=== PATIENT | female | born 1945 | race Caucasian/White ===

== ENCOUNTER → 2024-10-26 | Outpatient (CLI) | payer MEDICARE, SELFPAY ==
[2024-10-26 12:12] LABS: Basophils # (Auto) 0.1 Thou/mm3 (0.0-0.2); Basophils % (Auto) 1 % (0-2.5); Eosinophils # (Auto) 0.5 Thou/mm3 (0.0-0.5); Eosinophils % (Auto) 6 % (0-10); Hemoglobin 13.8 g/dL (12.0-16.0); Immature Granulocytes % (Auto) 0 % (0-0); Immature Granulocytes Auto 0.03 Thou/mm3 (0.00-0.00); Lymphocytes # (Auto) 1.6 Thou/mm3 (1.0-4.8); Lymphocytes % (Auto) 19 % (10-50); Mean Corpuscular HGB Conc 32.9 g/dl (31.0-37.0); Mean Corpuscular Hemoglobin 29.7 pg (25.0-35.0); Mean Corpuscular Volume 90 fL (80-100); Monocytes # (Auto) 0.7 Thou/mm3 (0.0-0.8); Monocytes % (Auto) 8 % (0-12); Neutrophils # (Auto) 5.7 Thou/mm3 (1.8-7.7); Neutrophils % (Auto) 67 % (37-80); Nucleated Red Blood Cell % 0 /100 WBC (0); Platelet Count 230 Thou/mm3 (140-440); RDW Standard Deviation 43.6 fL (36.4-46.3); Red Blood Count 4.65 Miln/mm3 (4.00-5.20); White Blood Count 8.6 Thou/mm3 (3.6-11.0)
[2024-10-26 12:35] LABS: Alanine Aminotransferase 11 U/L (10-49); Albumin, Serum 4.3 gm/dL (3.4-4.8); Albumin/Globulin Ratio 2.2 (1.2-2.2); Alkaline Phosphatase 74 U/L (46-116); Anion Gap 8 (7-16); Aspartate Amino Transferase 18 U/L (0-34); BUN/Creatinine Ratio 20 Ratio (12-20); Bilirubin,Total 0.5 mg/dL (0.3-1.2); Blood Urea Nitrogen 20 mg/dL (9-23); Calcium 9.8 mg/dL (8.3-10.6); Calcium (Corrected) 9.8 mg/dL (8.5-10.1); Carbon Dioxide 27.8 mMol/L (20.0-31.0); Chloride 105 mMol/L (98-107); Glucose 93 mg/dL (74-106); Osmolality,Calculated 283 (275-295); Potassium 4.7 mMol/L (3.4-5.1); Sodium 141 mMol/L (136-145); Total Protein 6.3 gm/dL (5.7-8.2); eGFR 57 See Note
== END | disposition home or self-care (01) ==
LOC: COPL 11:24
PROVIDERS: PCP Family Medicine; Referring Provider Family Medicine; Visit Provider Family Medicine
DX: N95.1 Menopausal and female climacteric states (principal); I83.893 Varicose veins of bilateral lower extremities with other complications; G90.09 Other idiopathic peripheral autonomic neuropathy; C83.10 Mantle cell lymphoma, unspecified site
CPT/HCPCS: 36415; 80053; 85025

== ENCOUNTER → 2024-12-22 | Outpatient (CLI) | payer MEDICARE, SELFPAY ==
--- NOTE | 2024-12-22 12:59 | XR_ITS ---
Examination: PA lateral chest 2 views TECHNIQUE: Upright PA lateral chest 2 views Exam date and time: December 22, 2024 1326 hours Comparison November 08, 2021 INDICATIONS: Coughing wheezing beginning 3 months ago. FINDINGS: Normal heart size Lungs are clear. Left subclavian Port-A-Cath tip SVC IMPRESSION: No pneumonia identified
--- NOTE | 2024-12-22 12:59 | XR_ITS ---
Examination: Sinus series 3 views TECHNIQUE: Beatriz Boo lateral sinus series 3 views Exam date and time: December 22, 2024 1330 hours INDICATIONS: Sinus pressure and pain beginning 3 months ago. FINDINGS: Significant chronic frontal ethmoid sinusitis No fluid levels No retention cysts IMPRESSION: Significant chronic frontal ethmoid sinusitis
[2024-12-22 15:25] LABS: Basophils # (Auto) 0.1 Thou/mm3 (0.0-0.2); Basophils % (Auto) 1 % (0-2.5); Eosinophils # (Auto) 0.2 Thou/mm3 (0.0-0.5); Eosinophils % (Auto) 2 % (0-10); Hematocrit 42.7 % (36.0-46.0); Hemoglobin 13.8 g/dL (12.0-16.0); Immature Granulocytes % (Auto) 0 % (0-0); Immature Granulocytes Auto 0.04 Thou/mm3 (0.00-0.00); Lymphocytes # (Auto) 1.3 Thou/mm3 (1.0-4.8); Lymphocytes % (Auto) 12 % (10-50); Mean Corpuscular HGB Conc 32.3 g/dl (31.0-37.0); Mean Corpuscular Hemoglobin 28.9 pg (25.0-35.0); Mean Corpuscular Volume 89 fL (80-100); Monocytes # (Auto) 0.7 Thou/mm3 (0.0-0.8); Monocytes % (Auto) 6 % (0-12); Neutrophils # (Auto) 9.1 Thou/mm3 (1.8-7.7); Neutrophils % (Auto) 79 % (37-80); Nucleated Red Blood Cell % 0 /100 WBC (0); Platelet Count 259 Thou/mm3 (140-440); RDW Standard Deviation 43.5 fL (36.4-46.3); Red Blood Count 4.78 Miln/mm3 (4.00-5.20); White Blood Count 11.5 Thou/mm3 (3.6-11.0)
[2024-12-23 12:28] LABS: Cocci Serology, IgM Negative (Negative)
[2024-12-24 16:05] LABS: Cocci Serology, IgG Negative (Negative)
== END | disposition home or self-care (01) ==
LOC: CDIM 12:56 → COPL 13:35
PROVIDERS: PCP Nurse Practitioner Family; Referring Provider Nurse Practitioner Family; Visit Provider Radiology Diagnostic Radiology
DX: R05.9 Cough, unspecified (principal); J32.2 Chronic ethmoidal sinusitis
CPT/HCPCS: 36415; 70220; 71046; 85025; 86331; 86635

== ENCOUNTER 2024-12-26 10:36 | Inpatient (IN) | payer MEDICARE, SELFPAY ==
--- NOTE | 2024-12-26 | XR_ITS ---
Examination: MRI lumbar spine, without intravenous contrast. MRI lumbar spine , with intravenous contrast. Exam date and time: December 26, 2024 7001 hours INDICATIONS: Chronic back pain and spasms, CT lumbar spine exam today cortical bone destruction inferior margin L 2 Technique: Multiple axial, sagittal and coronal images of the lumbar spine have been obtained with the Siemens high-resolution 1.5 Raegan MRI scanner. Images obtained included T2 weighted fat suppressed sagittal sections, TR 3500, TE 46, T2 weighted coronal fat suppressed images, TR 3050, TE 84, T2-weighted transverse fat suppressed images, TR 30-60, TE 63, proton density transverse images, TR 4720, TE 46, and T1 weighted coronal images, TR 560, TE 13. Axial, sagittal and coronal images are obtained post intravenous injection 14 cc gadolinium. Findings: Cortical irregularity inferior margin of L2 but no increased signal on the precontrast images and no abnormal enhancement involving the inferior margin of L2 on the postcontrast images There is abnormal contrast enhancement involving the upper margin of the L4 posterior inferior margin L3 and posterior superior margin of L2 as well as the inferior margin of L1 No intervening disc enhancement. IMPRESSION: Negative for osteomyelitis involving L2 Foci of enhancement in the lumbar vertebral bodies as above, differential would include involvement with the patient's known lymphoma versus other osseous metastatic disease. Recommend whole body bone scan follow-up No epidural tumor impingement upon the conus medullaris or cauda equina
[2024-12-26 10:41] VITALS: PULSE 80; RESP 18; O2SAT 98; BMI 26.6
--- NOTE | 2024-12-26 10:57 | PD.EDBACK ---
ED Back Injury Pain RME/HPI General Chief Complaint: Back Pain/Injury Stated Complaint: BACK PAIN Time Seen by Provider: 12/26/24 10:56 Arrival date/time: 12/26/24 10:36 RME / HPI RME / HPI Narrative: DR. SAN MAIN ED EVALUATION: 79 year old female presents to the Emergency Department [facility] from home with complaint of back pain. Patient has chronic back pain but since yesterday afternoon she states it is worse and has more spasms . Patient states that she took tramadol 50 mg with little to no relief at home. She denies any injury or fall; she just states that she was just doing vigorous household work. Patient denies any of the following: fall, injury, loss of consciousness, or any other symptoms at this time. PMHx: Chronic back pain, bronchitis, and peripheral neuropathy. 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 Social Hx: No tobacco, alcohol, or substance use. Related Data Home Medications ?Medication ?Instructions ?Recorded ?Confirmed Cetirizine * (ZYRTEC *) 10 mg PO QDAY #0 tabs 07/26/16 GLUC 2KCL/CHONDR/GERALD HY/HY AC ##0 07/26/16 (GLUCOSAMINE & CHONDROITIN CAP) Multivitamins * (CENTRUM *) 1 tab PO QDAY #0 tabs 07/26/16 Ubidecarenone/Vit E Acetate (Co 200 ##0 07/26/16 Q-10 100 mg Softgel) Vitamin B Complex ##0 07/26/16 alpha lipoic acid 200 mg capsule 100 ##0 07/26/16 biotin 800 mcg tablet 5,000 mcg PO QDAY #0 tabs 07/26/16 estradiol 0.025 mg/24 hr weekly 0.025 mg TOP Q7D #0 ea 07/26/16 transdermal patch (Climara) psyllium husk 0.52 gram capsule 0.52 gm PO BID ##0 07/26/16 (Metamucil) ropinirole 0.5 mg tablet (Requip) 0.5 mg PO HS #0 tabs 07/26/16 tramadol 50 mg tablet (Ultram) 50 mg PO HS PRN PAIN #0 tabs 07/26/16 Previous Rx's ?Medication ?Instructions ?Recorded ibuprofen 800 mg tablet 800 mg PO TID PRN pain #30 tabs 11/08/21 Allergies Allergy/AdvReac Type Severity Reaction Status Date / Time grass pollen Allergy Verified 12/26/24 10:49 Review of Systems Review of Systems Systems Reviewed: All systems reviewed, normal except as documented Narrative Review of Systems: Constitutional: DENIES: fevers; Eyes: DENIES: loss of vision; Head/Ear/Nose: DENIES: loss of hearing. Throat: DENIES: dysphagia. Cardiovascular: DENIES: chest pain, dyspnea, or syncope. Respiratory: DENIES: shortness of breath; Gastrointestinal: DENIES: rectal bleeding or melena. Genitourinary: DENIES: dysuria (painful or difficult urination); Musculoskeletal: POSITIVES: chronic back pain (see HPI) Skin: DENIES: rash; Neurological: DENIES: loss of function or movement; Psychiatric: DENIES: recent major life stressor, emotional problem, illicit drug use or abuse; Endocrinology: DENIES: weight change,; Hematologic/Lymphatic: DENIES: abnormal bruising. Allergic/Immunologic: DENIES: urticaria (hives). Past Medical History Past Medical History CARDIAC: Negative Congestive Heart Failure RESPIRATORY: Negative Chronic Obstructive Pulmonary Disease (COPD) GENITOURINARY: Negative Renal Disease ENDOCRINE: Negative Diabetes Mellitus Type 1 or Diabetes Mellitus Type 2 OTHER HISTORY: Positive Blood Transfusions Social History SMOKING STATUS: Never smoker SUBSTANCE USE: does not use ALCOHOL: Never ED Exam Narrative Physical exam: Physical Exam: General: The vital signs were reviewed. The patient is non-toxic, in no apparent distress and appears healthy with a patent airway, no respiratory distress and has no apparent circulatory problems. Head & Scalp: Normocephalic, atraumatic. Face: Appears normal and is without lesions, deformity. Ears: Left external pinna appears normal. Right external pinna appears normal. Eyes: The sclera is anicteric. No obvious photophobia. The Left and Right Orbit/Lid/Conjunctiva appears normal without swelling, discoloration or injection. Nose: The nose is without deformity, discharge or tenderness; Throat: Appears normal. The mucous membranes are pink and moist without exudates, redness or mass seen. The tongue appears normal. Neck: The neck is supple and no apparent mass or adenopathy. Chest: The chest wall is normal in size and symmetry and has no chest wall tenderness or crepitus. The patient displays normal ventilator effort without retractions, accessory muscle use and has adequate air movement bilaterally with no wheezes and no rales. Cardiovascular: Regular rate and rhythm; No murmurs, rubs, or gallops; Gastrointestinal: The abdomen appears normal. No obvious hernias or mass. The abdomen is soft and benign, non-distended, with no pain, no guarding and no rebound tenderness. Bowel sounds are present and normal sounding. No CVA tenderness. Genitourinary: Back/Spine: Complains of lumbar pain. Extremities/Musculoskeletal/lymphatic: The bilateral upper and lower extremities are warm. There is no evidence of arterial insufficiency. There is no evidence of venous insufficiency/edema. The patient spontaneously moves bilateral upper and lower extremities with no pain and no limitation of movement. There is no apparent, injury or trauma. Skin: The skin is warm, dry and intact. No rashes. No petechia. No purpura. No abnormal bruising. The color is appropriate with no cyanosis. Mental status/Psychiatric: Mental status is appropriate for age. The patient has no apparent delusions, visual hallucinations, no apparent audible hallucinations. The patient has no apparent suicidal thoughts/ideation and no apparent homicidal thoughts/ideation. Neurological: The patient is awake, alert, interactive, cordial, cooperative and is oriented to name and situation. The patient follows commands and answers historical question with no impairment. There is no visual disturbance apparent. The pupils are equal and reactive bilaterally with normal eye movements and no diplopia The bilateral upper and lower extremities have normal strength, normal range of motion and normal functioning. The gait, station and balance appear to be baseline with no acute change Course Quality Measures none Orders Category Date Time Status MRI Screening NOW Care 12/26/24 15:[address] lumbar spine wo con Stat Exams 12/26/24 10:56 Completed MR lumbar spine wo/w con Stat Exams 12/26/24 Ordered XR chest 1V portable Stat Exams 12/26/24 10:58 Completed CBC Stat Lab 12/26/24 11:20 Completed Comprehensive Metabolic Panel Stat Lab 12/26/24 11:20 Completed PT [Prothrombin Time with INR] Stat Lab 12/26/24 11:20 Completed PTT [Partial Thromboplastin Time] Stat Lab 12/26/24 11:20 Completed Urinalysis Stat Lab 12/26/24 11:45 Completed Morphine Inj Med 12/26/24 16:14 Discontinued 2 mg IVP X1 ONE Ondansetron Inj [Zofran Inj] Med 12/26/24 16:15 Discontinued 4 mg IV X1 ONE Sodium Chloride 0.9% 1000 ml [Ns] 1,000 ml Med 12/26/24 10:56 Active IV 150 mls/hr Vital Signs Vital signs: Vital Signs Temperature 98.3 F 12/26/24 13:53 Pulse Rate 74 12/26/24 13:53 Respiratory Rate 19 12/26/24 13:53 Blood Pressure 159/82 H 12/26/24 13:53 Pulse Oximetry (%) 96 12/26/24 13:53 Oxygen Delivery Method Room Air 12/26/24 13:53 Back Pain / Injury MDM Narrative MDM Narrative:: Patient is 79-year-old who comes in with back pain for 2 days it got worse this morning tramadol was not helping. She states she was doing her yard work or housework a little more aggressively than usual. She also has a history of laminectomy 1977 has had intermittent back pain throughout the years but this is the worst it has been. She also has history of lymphoma years ago that is in remission. There is no fever vomiting or diarrhea. Medical workup included the following white count 10.1 hemoglobin 13.1 platelet count 235,000 PT 10.5 INR is 1 PTT 25.9 sodium 139 potassium 3.8 chloride 21 anion gap is 10 BUN 12 creatinine 0.9 glucose 100 catheter urine specimen came back negative. Chest x-ray was done which reveals no infiltrates no effusion normal heart. Lumbar CT was done to rule out compression fracture and rule out pathologic fracture but fortunately there is no evidence of that. Patient does have the following: Prominent osteopenia cortical erosions inferior endplate L2, sagittal image with impression that we need to consider or rule out osteomyelitis. Note patient has no fever no chills and the findings are borderline but nonetheless MRI with and without contrast was suggested by radiology and this is pending as of 1700 hrs. The care of this patient be signed out to the oncoming doctor at 1800 hrs. to follow-up on the MRI. She also got pain medicine she appears to be comfortable when she is not moving. This will need to be reassessed at the time of reevaluation on the following DrNorma Transfer of care at 1800 hrs. see if the patient can ambulate with safety and if the MRI report shows no evidence of osteomyelitis. Virginia Rosen, am scribing for and in the presence of Dr. San. Patient data External records reviewed:: EMS form Clinical information provided by:: patient and EMS Social determinants that could affect healthcare access:: none Patient has the following chronic illnesses:: Chronic back pain, bronchitis, and peripheral neuropathy. 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 How is presenting disease/condition affected by chronic disease/condition?: exacerbated by Evaluation data The following diagnostics were reviewed and interpreted by me:: lab results and radiology exam(s) Lab and/or radiology exams considered but not ordered:: none Interpretation Summary: See above under MDM narrative. RADIOLOGY Procedure(s): XR chest 1V portable Accession Number(s): [id number] cc: Bashir San MD; Rio Kraus MD~ Examination: AP chest single view Technique one AP portable upright chest single view Exam date and time: 12/26/2024t 1008 hours Comparison December 22, 2024 INDICATIONS: Dyspnea today. FINDINGS: Left subclavian Port-A-Cath tip SVC Normal heart size Lungs are clear IMPRESSION: No active disease Dictated By: Rio Kraus MD Procedure(s): CT lumbar spine wo [facility] Accession Number(s): [id number] cc: Bashir San MD; Rio Kraus MD; Andreas Pettit MD~ Examination: CT lumbar spine, without contrast. 2-D sagittal reconstructions. 2-D coronal reconstructions. 3-D reconstructions. Date and time of exam:December 26, 2024 1158 hours INDICATIONS: Diagnosis lymphoma, increasing back pain today CTDI: vol (mGy):52.8 DLP: (mGycm):618 Technique: Multiple 1.25 mm axial sections of the lumbar spine without intravenous contrast have been obtained. 2-D sagittal and coronal reconstructions have been obtained. 3-D reconstructions have been obtained. Low dose protocols were performed. One or more of the following dose reduction techniques were used; automated exposure control, adjustment of the mA and/or KV according to patient size, use of iterative reconstruction technique. Findings: Prominent osteopenia cortical erosions inferior endplate L2, sagittal image 52 Advanced disc narrowing at the lower 3 lumbar levels Axial images demonstrate 3 mm central disc bulge L3-L4 1 mm posterior left renal calculi IMPRESSION: Cortical erosions inferior endplate L2, consider osteomyelitis Recommend MRI lumbar spine follow-up pre and post intravenous contrast Dictated By: Rio Kraus MD Medications / Prescriptions Medications or Prescriptions considered but not ordered:: none Medication administrations:: Medication Administration History Sodium Chloride (Ns) 1,000 mls @ 150 mls/hr IV .[id number] ONE Stop: 12/26/24 17:35 Last Admin: 12/26/24 11:29 Dose: 150 mls/hr Documented By: Discontinued Medications Morphine Sulfate (Morphine Sulf Inj 10 Mg/Ml Vial) 2 mg IVP X1 ONE Stop: 12/26/24 16:15 Last Admin: 03/24/25 16:44 Dose: 2 mg Documented By: LIOR Ondansetron HCl (Ondansetron Inj 2 Mg/Ml Inj 2 Ml) 4 mg IV X1 ONE; Protocol Stop: 12/26/24 16:16 Last Admin: 12/26/24 16:44 Dose: 4 mg Documented By: LIOR see above Consultations Consultation(s) initiated? (list below): No Diagnosis Differential diagnosis back pain/injury: lumbar radiculopathy, sciatica, strain of lumbar region, pyelonephritis, thoracic back pain and discitis Most likely diagnosis given after review of the tests above:: No official diagnoses at this time, still pending diagnostic tests. Patient signout to the cloth shrinking machine operator helper provider. Admission Indicated Admission indicated?: not indicated Explain why admission is indicated or not indicated:: No final disposition plan at this time, still pending diagnostic tests. Patient signout to the cloth shrinking machine operator helper provider. Admission Request Was there a request for admission?: No Disposition Plan Disposition Plan: other (specify) (Patient signout to the cloth shrinking machine operator helper provider.) Discharge Plan Prescriptions/Referrals Prescriptions/Med Rec: No Action biotin 800 MCG tablet 5,000 mcg PO QDAY Qty: 0 tramadol [Ultram] 50 MG tablet 50 mg PO HS PRN (Reason: PAIN) Qty: 0 Patient Comments: FOR PAIN, NOT TO EXCEED 8 TABS IN 24 HRS ropinirole [Requip] 0.5 MG tablet 0.5 mg PO HS Qty: 0 alpha lipoic acid 200 MG capsule 100 Qty: 0 Cetirizine * (ZYRTEC *) 10 MG tablet 10 mg PO QDAY Qty: 0 Multivitamins * (CENTRUM *) 1 EACH tablet 1 tab PO QDAY Qty: 0 Ubidecarenone/Vit E Acetate (Co Q-10 100 mg Softgel) 1 EACH capsule 200 Qty: 0 psyllium husk [Metamucil] 0.52 G capsule 0.52 gm PO BID Qty: 0 GLUC 2KCL/CHONDR/GERALD HY/HY AC (GLUCOSAMINE & CHONDROITIN CAP) 1 EACH capsule Qty: 0 Vitamin B Complex 1 CAP capsule Qty: 0 estradiol [Climara] 1 PATCH.WK patch weekly 0.025 mg TOP Q7D Qty: 0 ibuprofen 800 mg tablet 800 mg PO TID PRN (Reason: pain) Qty: 30 0RF Referrals: Andreas Pettit MD [Primary Care Provider] - In 1 week Problem List Clinical Impression: Intractable low back pain, Abnormal CT scan, lumbar spine Patient/Caregiver Discharge Instructions Print Language: Hong Konger
[2024-12-26] MEDS: SODIUM CHLORIDE 0.9% 1000 ML 1,000 ML 150 ML IV (11:29)
[2024-12-26 11:42] LABS: Basophils # (Auto) 0.1 Thou/mm3 (0.0-0.2); Basophils % (Auto) 1 % (0-2.5); Eosinophils # (Auto) 0.4 Thou/mm3 (0.0-0.5); Eosinophils % (Auto) 4 % (0-10); Hematocrit 38.9 % (36.0-46.0); Hemoglobin 13.1 g/dL (12.0-16.0); Immature Granulocytes % (Auto) 0 % (0-0); Immature Granulocytes Auto 0.03 Thou/mm3 (0.00-0.00); Lymphocytes # (Auto) 1.7 Thou/mm3 (1.0-4.8); Lymphocytes % (Auto) 17 % (10-50); Mean Corpuscular HGB Conc 33.7 g/dl (31.0-37.0); Mean Corpuscular Hemoglobin 29.5 pg (25.0-35.0); Mean Corpuscular Volume 88 fL (80-100); Monocytes # (Auto) 0.7 Thou/mm3 (0.0-0.8); Monocytes % (Auto) 6 % (0-12); Neutrophils # (Auto) 7.3 Thou/mm3 (1.8-7.7); Neutrophils % (Auto) 72 % (37-80); Nucleated Red Blood Cell % 0 /100 WBC (0); Platelet Count 235 Thou/mm3 (140-440); RDW Standard Deviation 42.4 fL (36.4-46.3); Red Blood Count 4.44 Miln/mm3 (4.00-5.20); White Blood Count 10.1 Thou/mm3 (3.6-11.0)
[2024-12-26 11:54] LABS: Partial Thromboplastin Time 25.9 Seconds (22.0-36.0); Prothrombin Time 10.5 Seconds (9.0-12.2)
[2024-12-26 12:06] LABS: Collection Type, Urine Catheter
[2024-12-26 12:08] LABS: Alanine Aminotransferase < 7 U/L (10-49); Albumin, Serum 3.9 gm/dL (3.4-4.8); Albumin/Globulin Ratio 1.9 (1.2-2.2); Alkaline Phosphatase 65 U/L (46-116); Anion Gap 10 (7-16); Aspartate Amino Transferase 14 U/L (0-34); BUN/Creatinine Ratio 13 Ratio (12-20); Bilirubin,Total 0.6 mg/dL (0.3-1.2); Blood Urea Nitrogen 12 mg/dL (9-23); Calcium 8.8 mg/dL (8.3-10.6); Calcium (Corrected) 8.9 mg/dL (8.5-10.1); Carbon Dioxide 20.4 mMol/L (20.0-31.0); Chloride 109 mMol/L (98-107); Creatinine (Component) 0.9 mg/dL (0.6-1.3); Estimated Creatinine Clearance 48.8 mL/min (>60); Globulin 2.1 gm/dL (2.3-3.5); Glucose 100 mg/dL (74-106); Osmolality,Calculated 277 (275-295); Potassium 3.8 mMol/L (3.4-5.1); Sodium 139 mMol/L (136-145); eGFR > 60 See Note
[2024-12-26 12:43] LABS: Bacteria,Urine Rare; Bilirubin,Urine Negative (Negative); Blood,Urine Negative (Negative); Clarity,Urine Clear (Clear/Hazy); Color,Urine Lt-Yellow (Lt Yel-Yel); Glucose, Urine Negative (Negative); Ketones,Urine Negative (Negative); Leukocyte Esterase,Urine Negative (Negative); Nitrite,Urine Negative (Negative); Protein,Urine Negative (Neg - Trace); RBC,Urine 1 /hpf (0-3); Specific Gravity,Urine 1.016 (1.001-1.035); Squamous Epithelial Cell,Urine 3 /hpf (0-5); Urobilinogen,Urine Negative mg/dL (0.0-1.0); WBC,Urine < 1 /hpf (0-5)
[2024-12-26 13:53] VITALS: BP 159/82; PULSE 74; RESP 19; TEMP 36.8; O2SAT 96
[2024-12-26 15:58] VITALS: BP 159/82; PULSE 72; RESP 17
[2024-12-26] MEDS: ONDANSETRON INJ 2 MG/ML INJ 2 ML 4 MG IV (16:44)
[2024-12-26] MEDS: MORPHINE SULF INJ 10 MG/ML VIAL 2 MG IVP (16:44)
[2024-12-26 20:12] VITALS: BP 148/71; PULSE 68; RESP 20; TEMP 37.1; O2SAT 96
--- NOTE | 2024-12-26 20:24 | PD.EDADDENDU ---
Emergency Room Addendum Addendum Narrative: I took over the care from previous shift physician (Dr. San) at 6 PM on 12/22/2024, see his notes for complete H&P and ED course. I reviewed all diagnostic test results. 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 Can't stand or walk or function. Based on my best medical judgment, made decision no further evaluation or treatment indicated at this time. Patient understands and agrees to the discharge instructions customized and printed, see below. Brendan Rangel MD
[2024-12-26] MEDS: SODIUM CHLORIDE 0.9% 1000 ML 1,000 ML 75 ML IV (20:55)
--- NOTE | 2024-12-26 21:16 | PD.RESHP ---
Documentation for date of: 12/26/24 HPI History of Present Illness History of present illness: Nancy is a 79 y/o female with PMHx mantle cell lymphoma, (in remission since 2008, status post stem cell transplant), infertility, chronic lower back pain who comes for an evaluation of lower back pain onset 2 days ago, improved with some tramadol. Patient reports that she has had chronic lower back pain for years now and she had gotten a laminectomy before. She also says that she takes tramadol for peripheral neuropathy and to help her back pain every night. She also says that she is able to walk on her own, however since the back pain had started she has not been able to walk. She said her pain is a 10/10 when she tries to walk. She denies any worsening numbness or tingling from her baseline, she has peripheral neuropathy due to history of chemotherapy in the past. She denies having a recent fall. She denies any urinary symptoms such as incontinence. She says her pain is so bad it that is been affecting her gait and has been walking gingerly. She denies any chest pain, shortness of breath, confusion, headache. At this time she does endorse that her 6 months ago and that she has been the bag alone in her house in [place]. She says that she lives alone currently but she has a lot of friends. No other complaints at this time ED Course: Patient arrived to the ED with temperature of 98.3, heart rate of 74, respiratory of 19, blood pressure 159/82, saturating 96% on room air. She was worked up was found to have a sodium of 139, potassium 3.8, bicarb 28, BUN/creatinine of twelve and 0.9 respectively, sugar of 100, white count 10.1, hemoglobin 13.1, calcium 8.9, AST ALT 19 and 7 respectively, urinalysis unremarkable. CT lumbar showed cortical erosions in the L2 spine, concerning for osteomyelitis. Lumbar MRI was done which showed enhancement lumbar bodies no osteomyelitis. Patient was given normal saline 150 cc/ hour, morphine x 1, Zofran x 1. Medicine was consulted patient was made to floors PMHx: As above Surgeries: Cervical fusion, hysterectomy, stem cell transplant (2008), laminectomy, carpal tunnel surgery, cataract repair Meds: Tramadol, Flonase, Zyrtec, assortment of vitamins, estradiol Allergies: Grass pollen Family Hx: Dad in the 90s of colon cancer, mother of old age. She says that her family has health genetics Social Hx: Born in [facility] raised in [place] moved to [place] in 1983. 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 A majority of her family lives in [place]. Has never been a heavy drinker, no smoking history, no drug use history. No recent travel. Able to walk on her own. Has recently been nursing a rotator cuff injury with physical therapy. Cooks a meal about once a week, and has a gourmet head chef cook 5 meals a month for her which she can make multiple meals out of. Review of Systems Review of Systems Narrative Review of Systems: Constitutional: No fever, chills, fatigue, weakness, weight loss HEENT: No eye pain, vision loss, ear pain, hearing loss, dysphagia, Cardiovascular: No chest pain, palpitations, edema, Respiratory: No cough, shortness of breath, wheezing GI: No NVD, abdominal pain, constipation, blood in stool, loss of appetite, heartburn Extremities: No presence of pitting edema MSK: Positive back pain, no joint pain, joint swelling, positive pain with walking, positive impaired gait Neuro: No dizziness, numbness, weakness, headaches, seizures, tremors Psych: No anxiety, depression Exam Vital Signs Temp Pulse Resp BP Pulse Ox O2 Del Method 98.7 F 68 20 148/71 H 96 Room Air 12/26/24 20:12 12/26/24 20:12 12/26/24 20:12 12/26/24 20:12 12/26/24 20:12 12/26/24 20:12 Narrative Exam General: AAOx3, NAD, pleasant elderly female. HEENT: Moist mucous membranes, conjunctiva clear, EOMI, PERRLA. Cardiovascular: possible ejection murmur heard in GILDA, radial pulses +2 bilat, RRR. Pulmonary: CTAB bilat no cough, no wheezing. GI: No tenderness to light or deep palpitation, no guarding, rigidity, rebound tenderness or distension. Extremities: No presence of trace or pitting edema in lower extremities bilaterally, dorsalis pedis pulses +2 bilaterally, shins slightly TTP bilat. Neuro: AAOx3, no focal motor or sensory deficits in the UE or LE bilat, however slight peripheral neuropathy in feet bilat . Psych: Good judgement, thought and behavior. Cooperative. Results: Labs 12/26/24 11:20 12/26/24 11:20 Labs: Short CBC 12/26/24 Range/Units 11:20 WBC 10.1 (3.6-11.0) Thou/mm3 Hgb 13.1 (12.0-16.0) g/dL Hct 38.9 (36.0-46.0) % Plt Count 235 (140-440) Thou/mm3 BMP 12/26/24 11:20 Sodium 139 Potassium 3.8 Chloride 109 H Carbon Dioxide 20.4 BUN 12 Creatinine 0.9 Glucose 100 Calcium 8.8 Liver Function 12/26/24 Range/Units 11:20 Total Bilirubin 0.6 (0.3-1.2) mg/dL AST 14 (0-34) U/L ALT < 7 L (10-49) U/L Alkaline Phosphatase 65 (46-116) U/L Albumin 3.9 (3.4-4.8) gm/dL Urine 12/26/24 Range/Units 11:45 Urine Color Lt-Yellow (Lt Yel-Yel) Urine Clarity Clear (Clear/Hazy) Urine pH 8.0 H (5.0-7.0) Ur Specific [place] 1.016 (1.001-1.035) Urine Protein Negative (Neg - Trace) Urine Glucose (UA) Negative (Negative) Quality Measures Quality Measures none Advance care planning discussed with:: patient Medications Home Medications and Allergies Home Medications ?Medication ?Instructions ?Recorded ?Confirmed ?Type Cetirizine * (ZYRTEC *) 10 mg PO QDAY #0 tabs 07/26/16 History GLUC 2KCL/CHONDR/GERALD HY/HY AC ##0 07/26/16 History (GLUCOSAMINE & CHONDROITIN CAP) Multivitamins * (CENTRUM *) 1 tab PO QDAY #0 tabs 07/26/16 History Ubidecarenone/Vit E Acetate (Co 200 ##0 07/26/16 History Q-10 100 mg Softgel) Vitamin B Complex ##0 07/26/16 History alpha lipoic acid 200 mg capsule 100 ##0 07/26/16 History biotin 800 mcg tablet 5,000 mcg PO QDAY #0 tabs 07/26/16 History estradiol 0.025 mg/24 hr weekly 0.025 mg TOP Q7D #0 ea 07/26/16 History transdermal patch (Climara) psyllium husk 0.52 gram capsule 0.52 gm PO BID ##0 07/26/16 History (Metamucil) ropinirole 0.5 mg tablet (Requip) 0.5 mg PO HS #0 tabs 07/26/16 History tramadol 50 mg tablet (Ultram) 50 mg PO HS PRN PAIN #0 tabs 07/26/16 History Allergies Allergy/AdvReac Type Severity Reaction Status Date / Time grass pollen Allergy Verified 12/26/24 10:49 Visit Medications Hydrocodone Bitart/Acetaminophen (Hydrocodone/Apap 5/325 Tablet) 1 tab PO Q4HR PRN PRN Reason: PAIN SCALE 4-6 (Moderate Stop: 12/31/24 20:32 Enoxaparin Sodium (Enoxaparin Sod Inj 40 Mg/0.4 Ml Syringe) 40 mg SC QDAY LIEN Stop: 01/10/25 08:59 Sodium Chloride (Ns) 1,000 mls @ 75 mls/hr IV .[id number] LIEN Stop: 01/25/25 20:44 Last Admin: 12/26/24 20:55 Dose: 75 mls/hr Morphine Sulfate (Morphine Sulf Inj 10 Mg/Ml Vial) 2 mg IVP Q2H PRN PRN Reason: PAIN SCALE 7-10 (Severe Stop: 12/31/24 20:32 Discontinued Medications Sodium Chloride (Ns) 1,000 mls @ 150 mls/hr IV .[id number] ONE Stop: 12/26/24 17:35 Last Admin: 12/26/24 11:29 Dose: 150 mls/hr Morphine Sulfate (Morphine Sulf Inj 10 Mg/Ml Vial) 2 mg IVP X1 ONE Stop: 12/26/24 16:15 Last Admin: 12/26/24 16:44 Dose: 2 mg Morphine Sulfate (Morphine Sulf Inj 10 Mg/Ml Vial) 2 mg IVP X1 ONE Stop: 12/26/24 19:04 Ondansetron HCl (Ondansetron Inj 2 Mg/Ml Inj 2 Ml) 4 mg IV X1 ONE; Protocol Stop: 12/26/24 16:16 Last Admin: 12/26/24 16:44 Dose: 4 mg Assessment & Plan Plan Assessment Nancy is a 79 y/o female with PMHx mantle cell lymphoma, (in remission since 2008, status post stem cell transplant), infertility, chronic lower back pain who is admitted for severe back pain. #Debilitating back pain DDx: Herination of disc, chronic lower back pain, spinal stenosis, osteomyelitis, cancer Patient does have history of lymphoma has been in remission since 2010 Patient also has history of a laminectomy Lumbar MRI pre and postcontrast does not show any herniation of disks but recommends follow-up body scan as there was enhancement of lumbar bodies Patient may also have fall risk as she is having heart trouble time walking and her baseline and she is able to walk on her own normally Patient does not have any symptoms of urinary incontinence Patient recently had and lives alone currently in her house in [place], may benefit from social worker health services referral Plan: ? Bedrest ? Pain control with Tylenol and [place] ? Consider neurology consult ? Physical therapy referral ? administrative services coordinator referral #Hx of mantle cell lymphoma, in remission, s/p stem cell transplant 2008 Stable at this time #Hx of chronic allergies Plan: ?Resumed home Flonase and Claritin #Health Maintenance Disposition: MedSurg DVT prophylaxis: Lovenox GI prophylaxis: None indicated at this time Diet: Regular CODE STATUS:DNR Patient seen and care discussed with my attending physician, Dr. Damon Lopez, PGY-1 Attending Provider Attestation/Addendum Pt was evaluated and plan formulated together with the housestaff team. I have reviewed the residents note above and agree with most of its content. Please refer to the residents note for additional details. Severe back pain, unable to ambulate. Will need physical therapy evaluation in the morning. MRI is negative for osteomyelitis involving L2. There are foci of enhancement in the lumbar vertebral bodies; differential includes involvement from the patient's known lymphoma versus other osseous metastatic disease. Recommend outpatient whole-body bone scan for follow-up.
[2024-12-26 23:56] VITALS: BP 136/67; PULSE 68; RESP 16; TEMP 36.9; O2SAT 95
--- NOTE | 2024-12-27 00:30 | PC.NURSE ---
Report given to MARICARMEN Dowd Med-surg
[2024-12-27 00:57] VITALS: BMI 26.6
[2024-12-27 04:00] VITALS: BP 146/63; PULSE 66; RESP 19; TEMP 36.3; O2SAT 95
[2024-12-27] MEDS: MORPHINE SULF INJ 10 MG/ML VIAL 2 MG IVP (05:35)
[2024-12-27 06:00] LABS: Basophils # (Auto) 0.1 Thou/mm3 (0.0-0.2); Basophils % (Auto) 1 % (0-2.5); Eosinophils # (Auto) 0.7 Thou/mm3 (0.0-0.5); Eosinophils % (Auto) 9 % (0-10); Hematocrit 38.7 % (36.0-46.0); Hemoglobin 12.7 g/dL (12.0-16.0); Immature Granulocytes % (Auto) 0 % (0-0); Immature Granulocytes Auto 0.02 Thou/mm3 (0.00-0.00); Lymphocytes # (Auto) 1.7 Thou/mm3 (1.0-4.8); Lymphocytes % (Auto) 20 % (10-50); Mean Corpuscular HGB Conc 32.8 g/dl (31.0-37.0); Mean Corpuscular Hemoglobin 29.6 pg (25.0-35.0); Mean Corpuscular Volume 90 fL (80-100); Monocytes # (Auto) 0.8 Thou/mm3 (0.0-0.8); Monocytes % (Auto) 10 % (0-12); Neutrophils # (Auto) 4.9 Thou/mm3 (1.8-7.7); Neutrophils % (Auto) 60 % (37-80); Nucleated Red Blood Cell % 0 /100 WBC (0); Platelet Count 208 Thou/mm3 (140-440); RDW Standard Deviation 43.8 fL (36.4-46.3); Red Blood Count 4.29 Miln/mm3 (4.00-5.20); White Blood Count 8.2 Thou/mm3 (3.6-11.0)
[2024-12-27 06:32] LABS: Alanine Aminotransferase < 7 U/L (10-49); Albumin, Serum 3.6 gm/dL (3.4-4.8); Albumin/Globulin Ratio 1.9 (1.2-2.2); Alkaline Phosphatase 58 U/L (46-116); Anion Gap 8 (7-16); Aspartate Amino Transferase 14 U/L (0-34); BUN/Creatinine Ratio 11 Ratio (12-20); Bilirubin,Total 0.5 mg/dL (0.3-1.2); Blood Urea Nitrogen 10 mg/dL (9-23); Calcium 8.8 mg/dL (8.3-10.6); Calcium (Corrected) 9.1 mg/dL (8.5-10.1); Carbon Dioxide 21.9 mMol/L (20.0-31.0); Chloride 113 mMol/L (98-107); Creatinine (Component) 0.9 mg/dL (0.6-1.3); Estimated Creatinine Clearance 48.8 mL/min (>60); Globulin 1.9 gm/dL (2.3-3.5); Glucose 92 mg/dL (74-106); Osmolality,Calculated 283 (275-295); Potassium 4.1 mMol/L (3.4-5.1); Sodium 143 mMol/L (136-145); Total Protein 5.5 gm/dL (5.7-8.2); eGFR > 60 See Note
[2024-12-27 08:00] VITALS: BP 149/81; PULSE 82; RESP 17; TEMP 36.6; O2SAT 98
[2024-12-27] MEDS: ENOXAPARIN SOD INJ 40 MG/0.4 ML SYRINGE SC (08:35)
--- NOTE | 2024-12-27 09:37 | ECHO_ITS ---
Transthoracic Echo Report Ht (in): 64 Wt (lb): 155 Exam Location: Portable Status: Inpatient [facility]el[facility] Department Supervisor: THOMAS Villanueva^^^^ Indications: Procedure Performed: BP: 118 / 67 HR: 66 Technical Quality: Fair MEASUREMENTS (Male / Female) Normal Values 2D ECHO LV Diastolic Diameter PLAX 4.0 cm 4.2 - 5.9 / 3.9 - 5.3 cm LV Systolic Diameter PLAX 2.6 cm IVS Diastolic Thickness 0.8 cm 0.6 - 1.0 / 0.6 - 0.9 cm LVPW Diastolic Thickness 0.7 cm 0.6 - 1.0 / 0.6 - 0.9 cm LV Relative Wall Thickness 0.4 LVOT Diameter 1.5 cm Aortic Root Diameter 2.5 cm LA Systolic Diameter LX 3.1 cm 3.0 - 4.0 / 2.7 - 3.8 cm Ascending Aorta Diameter 2.5 cm DOPPLER AV Peak Velocity 143.0 cm/s AV Peak Gradient 8.2 mmHg AV Mean Gradient 5.0 mmHg AV Velocity Time Integral 33.5 cm LVOT Peak Velocity 88.7 cm/s LVOT Peak Gradient 3.1 mmHg LVOT Velocity Time Integral 20.4 cm LVOT Cardiac Index 1323.5 cm?/min?m? AV Area Cont Eq vti 1.1 cm? AV Area Cont Eq pk 1.1 cm? MV Peak Velocity 119.0 cm/s MV Peak Gradient 5.7 mmHg MV Mean Velocity 81.7 cm/s MV Mean Gradient 3.0 mmHg MV Area PHT 2.7 cm? MR Peak Velocity 534.0 cm/s MR Peak Gradient 114.1 mmHg Mitral E Point Velocity 99.8 cm/s Mitral A Point Velocity 94.2 cm/s Mitral E to A Ratio 1.1 LV E' Lateral Velocity 5.1 cm/s Mitral E to LV E' Lateral Ratio 19.5 LV E' Septal Velocity 6.6 cm/s Mitral E to LV E' Septal Ratio 15.2 TR Peak Velocity 318.0 cm/s TR Peak Gradient 40.4 mmHg PV Peak Velocity 99.0 cm/s PV Peak Gradient 3.9 mmHg RVOT Peak Velocity 49.5 cm/s FINDINGS Left Ventricle Normal left ventricular size, wall thickness, systolic function with no obvious regional wall motion abnormalities. There is grade II diastolic dysfunction of the left ventricle (pseudonormal filling pattern). The left ventricular ejection fraction is normal, estimated at 55-60%. Right Ventricle The right ventricle is normal in size and systolic function. The estimated right ventricular systolic pressureis elevated , 50 mmHg. Left Atrium The left atrial cavity size is mildly increased. Right Atrium The right atrium is normal by two-dimensional imaging, color flow and Doppler imaging with no structural abnormalities, no thrombus formation present. Atrial Septum The interatrial septum appears normal with no evidence of a shunt. Aorta The aorta is normal by two-dimensional, color flow and Doppler interrogation. Mitral Valve Moderate mitral annular calcification. Moderate mitral regurgitation. Aortic Valve Aortic valve sclerosis. Tricuspid Valve There is mild to moderate tricuspid valve regurgitation. Pulmonic Valve Trivial pulmonic valve regurgitation. Vessels The pulmonary artery appears normal. The inferior vena cava pulmonary and hepatic veins appear normal. Pericardium The pericardium is normal by two-dimensional imaging. There is no significant pericardial effusion. CONCLUSIONS Indication: Stroke Patient refused Bubble study Normal LV size and function with an estimated EF of 55 to 60%. Diastolic dysfunction stage II. Mild LVH Normal RV size and function. Estimated RVSP moderately elevated at 50 mmHg. Moderate aortic valve sclerosis with mild calcification. Moderate to severe posterior MAC with mild to moderate MR Moderate MR. Mild to moderately dilated LA Jam Navarrete (Electronically Signed) Final Date: 28 December 2024 13:37
[2024-12-27 12:00] VITALS: BP 132/68; PULSE 86; RESP 16; TEMP 36.1; O2SAT 96
--- NOTE | 2024-12-27 14:46 | ESPR_ITS ---
<Statement entered by Aaliyah Ray MD - 12/27/24 16:20> I discussed with and supervised the nurse intern physician who took care of this patient. I personally saw and examined the patient and discussed the assessment and plan with the entire medicine team, including my attending Dr. Matt, I agree with the assessment and plan as documented below Patient seen and examined at bedside today. Labs and imaging reviewed. No overnights acute events this morning at the bed side she stated that her pain has become worse with daily activities. denied saddle anesthesia or bowel incontinence. case management is informed about the case, we will continue pain control with IV morphine and norco, pending physical therapy evaluation. Aaliyah Ray MD PGY-3 Disclaimer: Despite multiple revisions, due to the dictation software being used, the document bellow may not be free of grammatical errors including phonetic/typographic errors. However, this does not deter from our commitment to providing health care in the patient's best interest in mind. <Statement entered by Toshia Goldsmith MD - 12/27/24 15:36> Patient seen and examined at bedside. Patient continues to have back pain, that worsens with significant movement. Otherwise, patient denies any incontinence, sensation loss around saddle region, shortness of breath, and fevers. Patient states that her weight prior to her late 's passing was around 180 pounds, and is around 150 pounds today. Will follow-up with physical therapy recommendations. Will continue to manage patient's intractable back pain with IV and p.o. pain meds. I discussed with and supervised the nurse intern physician who took care of this patient. I personally saw and examined the patient and discussed the assessment and plan with the entire medicine team, including my attending Dr. Matt, I agree with most of the assessment and plan as documented below Toshia Goldsmith M.D. PGY-2 Disclaimer: Despite multiple revisions, due to the dictation software being used, the document bellow may not be free of grammatical errors including phonetic/typographic errors. However, this does not deter from our commitment to providing health care in the patient's best interest in mind. Documentation for date of: 12/27/24 Subjective Subjective Interval history: No overnight events. Patient seen and examined at bedside, resting comfortably. Patient endorses back pain with significant movements, currently stable. Denies fever, chills, shortness of breath, incontinence, change in sensation or new weakness. Pending PT eval. Exam Vital Signs Temp Pulse Resp BP Pulse Ox O2 Del Method 97 F 86 16 132/68 H 96 Room Air 12/27/24 12:00 12/27/24 12:00 12/27/24 12:00 12/27/24 12:00 12/27/24 12:00 12/27/24 12:00 Narrative Exam PE: Gen: Well-developed and well-nourished. HEENT: NCAT, PERRLA, EOMI, MMM, anicteric conjunctivae. CVS: normal S1 and S2. RRR. No M/R/G. Resp: CTA B/L. No rhonchi, rales, crackles or wheezing. Abd: soft, non-tender, non-distended. MSK: Good ROM in BUE & BLE. No edema or rash. No paraspinal tenderness. Neuro: CN II-XII grossly intact. Strength 5/5 in BUE & BLE. Alert and oriented x3. Psych: appropriate mood and affect. Objective Labs 12/28/24 04:59 12/28/24 04:59 Labs: Laboratory Results - last 24 hr 12/27/24 05:12 WBC 8.2 RBC 4.29 Hgb 12.7 Hct 38.7 MCV 90 MCH 29.6 MCHC 32.8 RDW Std Deviation 43.8 Plt Count 208 Neut % (Auto) 60 Lymph % (Auto) 20 Barren % (Auto) 10 Eos % (Auto) 9 Baso % (Auto) 1 Neut # (Auto) 4.9 Lymph # (Auto) 1.7 Barren # (Auto) 0.8 Eos # (Auto) 0.7 H Baso # (Auto) 0.1 Immature Gran # (Auto) 0.02 H Absolute Nucleated RBC 0.00 Immature Gran % 0 Nucleated RBC % 0 Sodium 143 Potassium 4.1 Chloride 113 H Carbon Dioxide 21.9 Anion Gap 8 BUN 10 Creatinine 0.9 Estim Creat Clear Calc 48.8 L eGFR > 60 BUN/Creatinine Ratio 11 L Glucose 92 Calculated Osmolality 283 Calcium 8.8 Corrected Calcium 9.1 Total Bilirubin 0.5 AST 14 ALT < 7 L Alkaline Phosphatase 58 Total Protein 5.5 L Albumin 3.6 Globulin 1.9 L Albumin/Globulin Ratio 1.9 Quality Measures Quality Measures VTE prophylaxis Advance care planning discussed with:: patient Assessment & Plan Assessment Current Active Medications: Generic Name Dose Route Start Last Admin Trade Name Freq PRN Reason Stop Dose Admin Hydrocodone Bitart/Acetaminophen 1 tab 12/27/24 08:54 Hydrocodone/Apap 5/325 Tablet PO 12/31/24 20:32 Q6HR PRN PAIN SCALE 4-6 (Moderate Protocol Enoxaparin Sodium 40 mg 12/27/24 09:00 12/27/24 08:35 Enoxaparin Sod Inj 40 Mg/0.4 Ml Syringe SC 01/10/25 08:59 40 mg QDAY LIEN Administration Fluticasone Propionate 1 spray 12/26/24 21:41 Fluticasone [place] 0.05% 16 Gm Btl NASAL 01/25/25 21:40 Q12H PRN congestion Loratadine 10 mg 12/26/24 21:41 Loratadine 10 Mg Tablet PO 01/25/25 21:40 Q12H PRN allergies Protocol Morphine Sulfate 1 mg 12/27/24 08:53 Morphine Sulf Inj 10 Mg/Ml Vial IVP 12/31/24 20:32 Q4H PRN PAIN SCALE 7-10 (Severe Plan 79 y/o female with PMHx mantle cell lymphoma, (in remission since 2008, status post stem cell transplant), infertility, chronic lower back pain who is admitted for severe back pain. #Intractable back pain Patient does have history of lymphoma has been in remission since 2010, Patient also has history of a laminectomy. Lumbar MRI pre and postcontrast does not show any herniation of disks but recommends follow-up body scan as there was enhancement of lumbar bodies Patient does not have any symptoms of urinary incontinence Patient recently had and lives alone currently in her house in [place], may benefit from social worker referral. Reports increased home activity to take care of herself, with notable increase in back pain over time. -Pain control with Tylenol and [place] -Morphine 1 mg IV every 4 hours as needed for severe pain -Physical therapy referral -protective services case worker referral #Hx of mantle cell lymphoma, in remission, s/p stem cell transplant 2008 Stable at this time. Lumber MRI showed focal enhancement in vertebral bodies. -Follow-up outpatient #Hx of chronic allergies -Resumed home Flonase and Claritin Lines: Peripheral IV DVT prophylaxis: Lovenox GI prophylaxis: None indicated at this time Diet: Regular CODE STATUS:DNR Plan of care discussed with senior resident Dr. Goldsmith PGY?[address] Ray PGY?3, and attending Dr. Matt. Rubén Harman MD PGY?1 Attending Provider Attestation/Addendum I have examined the patient, reviewed labs and imaging findings, discussed the case with the resident(s), and reviewed entered orders. I agree with the plan of care as outlined in this note, with these additional summaries/recommendations: Patient seen at bedside. Patient admitted overnight for intractable back pain requiring IV pain medicines. She reports improvement in pain today and says she has been overdoing it at home. Patient completed lumbar spine MRI which showed foci of enhancement in the lumbar vertebral bodies which may be related to patient's history of lymphoma versus osseous metastatic disease. No epidural tumor impingement upon the conus medullaris or cauda equina and no evidence of osteomyelitis. Patient is pending physical therapy evaluation for disposition. Patient will need outpatient whole-body bone scan. Patient has history of mantle cell lymphoma in remission. Repeat hematology and chemistry panel in am. Dr. Vernell MD
[2024-12-27 16:00] VITALS: BP 143/60; PULSE 68; RESP 16; TEMP 36.7; O2SAT 97
--- NOTE | 2024-12-27 17:27 | PC.PT ---
Patient is okay to ambulate in her room and to the bathroom/commode with no DME and 1 staff assist for safety since patient cannot ambulate long distance without feeling back spasms. RN made aware.
[2024-12-27] MEDS: MORPHINE SULF INJ 10 MG/ML VIAL IVP (17:50)
[2024-12-27 20:00] VITALS: BP 104/65; PULSE 68; RESP 18; TEMP 36.4; O2SAT 95
[2024-12-27] MEDS: guaiFENesin/DM 10 ML UDC PO (23:53)
[2024-12-28] VITALS: BP 134/68; PULSE 73; RESP 18; TEMP 36.6; O2SAT 97
[2024-12-28 04:00] VITALS: BP 143/74; PULSE 71; RESP 17; TEMP 36.6; O2SAT 98
[2024-12-28 05:57] LABS: Basophils # (Auto) 0.1 Thou/mm3 (0.0-0.2); Basophils % (Auto) 1 % (0-2.5); Eosinophils # (Auto) 0.7 Thou/mm3 (0.0-0.5); Eosinophils % (Auto) 10 % (0-10); Hematocrit 38.7 % (36.0-46.0); Hemoglobin 12.9 g/dL (12.0-16.0); Immature Granulocytes % (Auto) 0 % (0-0); Immature Granulocytes Auto 0.02 Thou/mm3 (0.00-0.00); Lymphocytes # (Auto) 1.5 Thou/mm3 (1.0-4.8); Lymphocytes % (Auto) 20 % (10-50); Mean Corpuscular HGB Conc 33.3 g/dl (31.0-37.0); Mean Corpuscular Hemoglobin 29.3 pg (25.0-35.0); Mean Corpuscular Volume 88 fL (80-100); Monocytes # (Auto) 0.7 Thou/mm3 (0.0-0.8); Monocytes % (Auto) 10 % (0-12); Neutrophils # (Auto) 4.3 Thou/mm3 (1.8-7.7); Neutrophils % (Auto) 59 % (37-80); Nucleated Red Blood Cell % 0 /100 WBC (0); Platelet Count 210 Thou/mm3 (140-440); RDW Standard Deviation 43.2 fL (36.4-46.3); White Blood Count 7.2 Thou/mm3 (3.6-11.0)
[2024-12-28 07:00] LABS: Alanine Aminotransferase < 7 U/L (10-49); Albumin, Serum 3.7 gm/dL (3.4-4.8); Albumin/Globulin Ratio 1.9 (1.2-2.2); Alkaline Phosphatase 61 U/L (46-116); Anion Gap 10 (7-16); Aspartate Amino Transferase 13 U/L (0-34); BUN/Creatinine Ratio 11 Ratio (12-20); Bilirubin,Total 0.5 mg/dL (0.3-1.2); Blood Urea Nitrogen 11 mg/dL (9-23); Calcium (Corrected) 9.2 mg/dL (8.5-10.1); Carbon Dioxide 23.3 mMol/L (20.0-31.0); Chloride 108 mMol/L (98-107); Estimated Creatinine Clearance 43.9 mL/min (>60); Glucose 104 mg/dL (74-106); Magnesium 1.8 mg/dL (1.6-2.6); Osmolality,Calculated 280 (275-295); Phosphorous 3.2 mg/dL (2.4-5.1); Potassium 3.8 mMol/L (3.4-5.1); Sodium 141 mMol/L (136-145); Total Protein 5.7 gm/dL (5.7-8.2); eGFR 57 See Note
[2024-12-28 08:00] VITALS: BP 129/62; PULSE 74; RESP 18; TEMP 36.2; O2SAT 98
[2024-12-28] MEDS: ENOXAPARIN SOD INJ 40 MG/0.4 ML SYRINGE SC (08:56)
[2024-12-28] MEDS: SENNA TABLET 1 TAB PO (08:57)
[2024-12-28] MEDS: Milk Of Magnesia Susp 30 ML UDC PO (08:57)
[2024-12-28] MEDS: estradioL 1 MG TABLET PO (11:23)
[2024-12-28 12:00] VITALS: BP 149/72; PULSE 81; RESP 18; TEMP 36.1; O2SAT 96
--- NOTE | 2024-12-28 13:35 | PC.SS ---
Patient is alert/oriented. She was able to verify demographics. Patient is independent with ADL's. Patient was admitted for back pain. Patient states the pain is so bad that prior to hospitalization she was unable to ambulate. Patient states she is to have an MRI and she's afraid it may be Cancer. Patient is being referred to Oncology for consult. Patient verbalized her recently. He 6 months ago. She has family out of state and they were recently here for her spouse. She has no one to care for her at home. SS and patient discussed short stay at SNF. Patient prefers [facility]. SS submitted inquiry on [facility]. Patient was accepted by facility. Updated physician team. Patient to d/c to [facility] . PCP: Dr. Gabbie Pettit. Last visit was a few weeks ago. Patient states her friend and neighbor is her alt medical decision maker: Sugey Posada, friend, or [phone] transportation: [facility]
--- NOTE | 2024-12-28 13:38 | ESPR_ITS ---
<Statement entered by Aaliyah Ray MD - 12/28/24 15:16> I discussed with and supervised the corporate development intern physician who took care of this patient. I personally saw and examined the patient and discussed the assessment and plan with the entire medicine team, including my attending Dr. Matt, I agree with the assessment and plan as documented below Patient seen and examined at bedside today. Labs and imaging reviewed. Overnight patient stated that was having wheezing and shortness of breath for which she received antihistaminics p.o. x 1 and guaifenesin with resolution of the symptoms. This morning the bedside patient is AOx4, respond to question properly she states that she feels well that she work with physical therapy for which SNF was recommend, due to patient present enhancement of the lumbar spine in the MRI patient will require to follow-up outpatient with heme-onc for possible PET scan and further studies. If patient remains stable we will anticipate discharge in next 24 to 48 hours. Case management is informed of the case. Aaliyah Ray MD PGY-3 Disclaimer: Despite multiple revisions, due to the dictation software being used, the document bellow may not be free of grammatical errors including phonetic/typographic errors. However, this does not deter from our commitment to providing health care in the patient's best interest in mind. <Statement entered by Toshia Goldsmith MD - 12/28/24 14:52> Patient is a 79 y/o female with PMHx mantle cell lymphoma, (in remission since 2008, status post stem cell transplant), infertility, chronic lower back pain who is admitted for severe intractable back pain. Patient seen and examined at bedside. Patient's pain is controlled with IV and PO pain medications. PT recommended SNF placement, and will anticipate discharge within 24 hours to [facility]. I discussed with and supervised the corporate development intern physician who took care of this patient. I personally saw and examined the patient and discussed the assessment and plan with the entire medicine team, including my attending , I agree with most of the assessment and plan as documented below Toshia Goldsmith M.D. PGY-2 Documentation for date of: 12/28/24 Subjective Subjective Interval history: No overnight events. Patient seen examined at bedside, resting comfortably. Patient endorses difficulty working with physical therapy due to back spasms, but will continue to participate. Patient requesting referral to outpatient oncology for further workup of possible lumbar metastasis imaging. Continue PT therapy. Patient likely discharge to [facility] transitional care tomorrow. Exam Vital Signs Temp Pulse Resp BP Pulse Ox O2 Del Method 96.9 F 81 18 149/72 H 96 Room Air 12/28/24 12:00 12/28/24 12:00 12/28/24 12:00 12/28/24 12:00 12/28/24 12:00 12/28/24 12:00 Narrative Exam PE: Gen: Well-developed and well-nourished. HEENT: NCAT, PERRLA, EOMI, MMM, anicteric conjunctivae. CVS: normal S1 and S2. RRR. No M/R/G. Resp: CTA B/L. No rhonchi, rales, crackles or wheezing. Abd: soft, non-tender, non-distended. MSK: Good ROM in BUE & BLE. No edema or rash. No paraspinal tenderness. Neuro: CN II-XII grossly intact. Strength 5/5 in BUE & BLE. Alert and oriented x3. Psych: appropriate mood and affect. Objective Labs 12/28/24 04:59 12/28/24 04:59 Labs: Laboratory Results - last 24 hr 12/28/24 04:59 WBC 7.2 RBC 4.40 Hgb 12.9 Hct 38.7 MCV 88 MCH 29.3 MCHC 33.3 RDW Std Deviation 43.2 Plt Count 210 Neut % (Auto) 59 Lymph % (Auto) 20 [place] % (Auto) 10 Eos % (Auto) 10 Baso % (Auto) 1 Neut # (Auto) 4.3 Lymph # (Auto) 1.5 [place] # (Auto) 0.7 Eos # (Auto) 0.7 H Baso # (Auto) 0.1 Immature Gran # (Auto) 0.02 H Absolute Nucleated RBC 0.00 Immature Gran % 0 Nucleated RBC % 0 Sodium 141 Potassium 3.8 Chloride 108 H Carbon Dioxide 23.3 Anion Gap 10 BUN 11 Creatinine 1.0 Estim Creat Clear Calc 43.9 L eGFR 57 L BUN/Creatinine Ratio 11 L Glucose 104 Calculated Osmolality 280 Calcium 9.0 Corrected Calcium 9.2 Phosphorus 3.2 Magnesium 1.8 Total Bilirubin 0.5 AST 13 ALT < 7 L Alkaline Phosphatase 61 Total Protein 5.7 Albumin 3.7 Globulin 2.0 L Albumin/Globulin Ratio 1.9 Quality Measures Quality Measures VTE prophylaxis Advance care planning discussed with:: patient Assessment & Plan Assessment Current Active Medications: Generic Name Dose Route Start Last Admin Trade Name Freq PRN Reason Stop Dose Admin Hydrocodone Bitart/Acetaminophen 1 tab 12/27/24 08:54 Hydrocodone/Apap 5/325 Tablet PO 12/31/24 20:32 Q6HR PRN PAIN SCALE 4-6 (Moderate Enoxaparin Sodium 40 mg 12/27/24 09:00 12/28/24 08:56 Enoxaparin Sod Inj 40 Mg/0.4 Ml Syringe SC 01/10/25 08:59 40 mg QDAY LIEN Administration Estradiol 1 mg 12/28/24 10:00 12/28/24 11:23 Estradiol 1 Mg Tablet PO 01/27/25 09:59 1 mg QDAY LIEN Administration Fluticasone Propionate 1 spray 12/26/24 21:41 Fluticasone Irvin [place] Jose 0.05% 16 Gm Btl NASAL 01/25/25 21:40 Q12H PRN congestion Protocol Loratadine 10 mg 12/28/24 11:18 Loratadine 10 Mg Tablet PO 01/28/25 08:59 QDAY PRN allergies Magnesium Hydroxide 30 ml 12/27/24 16:15 12/28/24 08:57 Milk Of Magnesia Susp 30 Ml Udc PO 01/26/25 16:14 30 ml QDAY LIEN Administration Protocol Morphine Sulfate 1 mg 12/27/24 08:53 12/27/24 17:50 Morphine Sulf Inj 10 Mg/Ml Vial IVP 12/31/24 20:32 1 mg Q4H PRN Administration PAIN SCALE 7-10 (Severe Sennosides 1 tab 12/28/24 09:00 12/28/24 08:57 Senna Tablet PO 01/27/25 08:59 1 tab QDAY LIEN Administration Protocol Tramadol HCl 50 mg 12/27/24 16:09 Tramadol Hcl 50 Mg Tablet PO 01/01/25 16:08 HS PRN BREAKTHROUGH PAIN (SEVERE) Plan 79 y/o female with PMHx mantle cell lymphoma, (in remission since 2008, status post stem cell transplant), infertility, chronic lower back pain who is admitted for severe back pain. #Intractable back pain Patient does have history of lymphoma has been in remission since 2010, Patient also has history of a laminectomy. Lumbar MRI pre and postcontrast does not show any herniation of disks but recommends follow-up body scan as there was enhancement of lumbar bodies Patient does not have any symptoms of urinary incontinence Patient recently had and lives alone currently in her house in [place], may benefit from social services aide referral. Reports increased home activity to take care of herself, with notable increase in back pain over time. -Pain control with Tylenol and [place] -Morphine 1 mg IV every 4 hours as needed for severe pain -Physical therapy referral -patient financial services coordinator referral #Hx of mantle cell lymphoma, in remission, s/p stem cell transplant 2009 Stable at this time. Lumber MRI showed focal enhancement in vertebral bodies. -Follow-up outpatient #Hx of chronic allergies -Resumed home Flonase and Claritin Lines: Peripheral IV DVT prophylaxis: Lovenox GI prophylaxis: None indicated at this time Diet: Regular CODE STATUS:DNR Plan of care discussed with senior resident Dr. Goldsmith PGY?[address] Ray PGY?3, and attending Dr. Matt. Rubén Harman MD PGY?1 Attending Provider Attestation/Addendum I have examined the patient, reviewed labs and imaging findings, discussed the case with the resident(s), and reviewed entered orders. I agree with the plan of care as outlined in this note, with these additional summaries/recommendations: Patient seen at bedside. No acute overnight events. Patient admitted for intractable back pain requiring IV pain medicines. She continues to report improvement in pain. Patient completed lumbar spine MRI which showed foci of enhancement in the lumbar vertebral bodies which may be related to patient's history of lymphoma versus osseous metastatic disease. No epidural tumor impingement upon the conus medullaris or cauda equina and no evidence of osteomyelitis. Patient will need outpatient whole-body bone scan. Patient was seen by physical therapy who recommend senior living facility and patient pending placement. Patient has history of mantle cell lymphoma in remission and will need outpatient follow-up with oncology. Repeat hematology and chemistry panel in am. Dr. Vernell MD
--- NOTE | 2024-12-28 15:45 | PC.SS ---
rounding note: Patient to d/c to facility . Not medically ready for d/c today
[2024-12-28 16:00] VITALS: BP 137/93; PULSE 71; RESP 18; TEMP 36.2; O2SAT 97
[2024-12-28 20:00] VITALS: BP 151/63; PULSE 73; RESP 18; TEMP 36.4; O2SAT 95
[2024-12-28] MEDS: guaiFENesin/DM 10 ML UDC PO (21:51)
[2024-12-29] VITALS: BP 141/50; PULSE 73; RESP 18; TEMP 36.2; O2SAT 96
[2024-12-29] MEDS: traMADol HCL 50 MG TABLET PO (00:04)
[2024-12-29] MEDS: MORPHINE SULF INJ 10 MG/ML VIAL IVP (01:21)
[2024-12-29 04:00] VITALS: BP 145/71; PULSE 77; RESP 18; TEMP 36.4; O2SAT 96
[2024-12-29 06:29] LABS: Alanine Aminotransferase 9 U/L (10-49); Albumin, Serum 3.9 gm/dL (3.4-4.8); Albumin/Globulin Ratio 1.8 (1.2-2.2); Alkaline Phosphatase 55 U/L (46-116); Anion Gap 10 (7-16); Aspartate Amino Transferase 33 U/L (0-34); BUN/Creatinine Ratio 14 Ratio (12-20); Bilirubin,Total 0.5 mg/dL (0.3-1.2); Blood Urea Nitrogen 11 mg/dL (9-23); Calcium 9.3 mg/dL (8.3-10.6); Calcium (Corrected) 9.4 mg/dL (8.5-10.1); Carbon Dioxide 24.4 mMol/L (20.0-31.0); Chloride 109 mMol/L (98-107); Creatinine (Component) 0.8 mg/dL (0.6-1.3); Estimated Creatinine Clearance 54.9 mL/min (>60); Globulin 2.2 gm/dL (2.3-3.5); Glucose 92 mg/dL (74-106); Magnesium 2.1 mg/dL (1.6-2.6); Osmolality,Calculated 284 (275-295); Phosphorous 3.5 mg/dL (2.4-5.1); Potassium 4.6 mMol/L (3.4-5.1); Sodium 143 mMol/L (136-145); Total Protein 6.1 gm/dL (5.7-8.2); eGFR > 60 See Note
[2024-12-29 08:00] VITALS: BP 146/73; PULSE 71; RESP 18; TEMP 36.1; O2SAT 96
[2024-12-29 08:01] LABS: Basophils % (Auto) 1 % (0-2.5); Eosinophils # (Auto) 0.7 Thou/mm3 (0.0-0.5); Eosinophils % (Auto) 9 % (0-10); Hemoglobin 13.5 g/dL (12.0-16.0); Immature Granulocytes % (Auto) 0 % (0-0); Immature Granulocytes Auto 0.01 Thou/mm3 (0.00-0.00); Lymphocytes # (Auto) 1.8 Thou/mm3 (1.0-4.8); Lymphocytes % (Auto) 25 % (10-50); Mean Corpuscular HGB Conc 33.8 g/dl (31.0-37.0); Mean Corpuscular Hemoglobin 29.5 pg (25.0-35.0); Mean Corpuscular Volume 87 fL (80-100); Monocytes # (Auto) 0.8 Thou/mm3 (0.0-0.8); Monocytes % (Auto) 11 % (0-12); Neutrophils # (Auto) 3.9 Thou/mm3 (1.8-7.7); Neutrophils % (Auto) 54 % (37-80); Nucleated Red Blood Cell % 0 /100 WBC (0); Platelet Count 203 Thou/mm3 (140-440); RDW Standard Deviation 42.5 fL (36.4-46.3); Red Blood Count 4.58 Miln/mm3 (4.00-5.20); White Blood Count 7.2 Thou/mm3 (3.6-11.0)
[2024-12-29] MEDS: estradioL 1 MG TABLET PO (08:07)
--- NOTE | 2024-12-29 08:17 | PC.SS ---
Addendum entered by ADDIS Munoz 12/29/24 12:34: Patient to d/c to [facility]. Patient aware and requesting gurney transportation. [facility] transportation ETA 1300. Deedee at [facility] notified. Bed side nurse updated. Packet in chart. Addendum entered by ADDIS Munoz 12/29/24 09:48: [facility] booked on [facility]. PASRR was e-filed to [facility]. Original Note: PASRR completed.
[2024-12-29 12:00] VITALS: BP 138/66; PULSE 64; RESP 18; TEMP 36.4; O2SAT 96
--- NOTE | 2024-12-29 16:04 | ESDS_ITS ---
<Statement entered by Yonas Anderson MD - 12/30/24 11:25> I have discussed and was present for the essential components of the history, physical examination, diagnosis, and treatment plan with the resident. I agree with the patient's care as documented by the resident and amended herein by me. Yonas Anderson MD FACP. Planned Discharge Date 12/29/24 DS: Providers Provider Date of admission: 12/26/24 20:33 Primary care physician: Andreas Pettit MD Admitting Provider: Eligio Jose MD Attending Provider on Admission: Yonas Anderson MD Consults: 12/26/24 20:35 Referral Physical Therapy Routine Comment: Physician Instructions: Attending Provider on DC: Toshia Goldsmith MD Discharging Provider: Toshia Goldsmith MD DS: Diagnosis Problem List Completed Was Problem List Reviewed/Reconciled?: Yes Hospital Course Hospital Course Hospital course: Patient is a 79 y/o female with PMHx mantle cell lymphoma, (in remission since 2008, status post stem cell transplant), infertility, chronic lower back pain who is admitted for severe, intractable back pain on 12/26/24. Lumbar MRI pre and postcontrast did not show any herniation of disks but recommended follow-up body scan as there was enhancement of lumbar bodies. Patient does not have any symptoms of urinary incontinence. Patient recently had and lives alone currently in her house in [place], and is at risk for increased falls in the setting of increased back pain limiting her daily living. PT evaluated the patient and recommended SNF. Echo revealed diastolic dysfunction grade II, normal LV size and function with EF 55-60%. Pt seen and examined at bedside. Pt denies any complaints. Pt is medically cleared to be discharged today with the following instructions: Please take [place] and OTC Tylenol as needed for pain Please take your home medications otherwise as prescribed Please see your PCP within 1-2 weeks. Ordered a Oncology consult for you to f/u with at the [facility] Please return to the ED if your symptoms worsen. Hospital discharge diagnoses treated during hospital stay: #Intractable back pain #Hx of mantle cell lymphoma, in remission, s/p stem cell transplant 2008 #Hx of chronic allergies Plan of care discussed with senior resident Dr. Savage PGY?3, and attending Dr. Anderson. Toshia Goldsmith MD PGY?2 Status at Discharge Cognitive/behavioral status at discharge: stable Time Spent with Patient Time attestation: Total time spent providing and/or coordinating discharge services: 35 Exam Vital Signs Temp Pulse Resp BP Pulse Ox O2 Del Method 97.6 F 64 18 138/66 H 96 Room Air 12/29/24 12:00 12/29/24 12:00 12/29/24 12:00 12/29/24 12:00 12/29/24 12:00 12/29/24 12:00 Narrative Exam General Appearance: Pt in NAD laying comfortably in bed. HEENT: NC/AT, no scleral icterus, no conjunctival pallor, MMM Lungs: CTAB, no wheezes or crackles appreciated CVS: RRR, S1/S2 heard, no murmurs or rubs appreciated ABD: Soft, non-tender, non-distended, BS + in all 4 quadrants EXT: no deformity/edema/lesions/cyanosis/clubbing, radial pulses 2+ BL, DP pulses 2 + BL, no paraspinal tenderness SKIN: Skin exam normal without any rashes. Neuro: A&O x 3. No gross neurological deficits. Motor and sensory grossly intact in B/L UL and LL. Psych: Appropriate mood and affect Discharge Plan Plan Patient Disposition: Xfer Skilled Nsg Fac (SNF) Patient condition on transfer: Stable Care Plan Goals: Please take [place] and OTC Tylenol as needed for pain Please take your home medications otherwise as prescribed Please see your PCP within 1-2 weeks. Ordered a Oncology consult for you to f/u with at the [facility] Please return to the ED if your symptoms worsen. Prescriptions/Referrals Prescriptions/Med Rec: New hydrocodone-acetaminophen 5-325 mg tablet 1 tab PO Q8H MDD 3 PRN (Reason: pain) 3 Days Qty: 9 0RF Continued tramadol [Ultram] 50 MG tablet 50 mg PO HS PRN (Reason: PAIN) Qty: 0 Patient Comments: FOR PAIN, NOT TO EXCEED 8 TABS IN 24 HRS Cetirizine * (ZYRTEC *) 10 MG tablet 10 mg PO QDAY Qty: 0 estradiol 1 mg tablet 1 mg PO QDAY Patient Comments: TAKE 1 TABLET BY MOUTH EVERY DAY alpha lipoic acid 200 mg capsule 200 mg PO QDAY ttzjlxgn-smhf-njwago-hyalur ac 436-345-44-2 mg capsule 1 cap PO BID Mag Glycinate 100 mg tablet 100 mg PO BID cranberry iyqe-I-sdwtdaqx coag [Azo Cranberry Plus Probiotic] 1 tab PO QDAY Referrals: Andreas Pettit MD [Primary Care Provider] - Outpatient Orders (i.e. Home Health, Labs, Imaging): Oncologist (Routine) Location: None Selected Ordered By: Rubén Harman Patient/Caregiver Discharge Instructions Print Language: Upper Sorbian Stand Alone Forms: Nataly Award Info., Patient Portal Info Letter Discharge Order Discharge Orders: Discharge (Routine); Ordered 12/29/24 Ordered By: Toshia Goldsmith Quality Discharge Quality Measures VTE prophylaxis
== END 2024-12-29 13:30 | disposition skilled nursing facility (03) | DRG 552 ==
LOC: SERX 20:24 → SERHOLD 20:46 → S3SX 12-27 00:49
PROVIDERS: Emergency Medicine; Student in an Organized Health Care Education/Training Program; Admitting Provider Internal Medicine; Emergency Provider Emergency Medicine; PCP Family Medicine; Visit Provider Internal Medicine
DX: M54.50 Low back pain, unspecified (principal); C83.1A Mantle cell lymphoma, in remission; Z94.84 Stem cells transplant status; N97.9 Female infertility, unspecified; G89.29 Other chronic pain; G62.9 Polyneuropathy, unspecified; M54.59 Other low back pain; Z63.4 Disappearance and death of family member; M85.80 Other specified disorders of bone density and structure, unspecified site; Z66 Do not resuscitate; Z92.21 Personal history of antineoplastic chemotherapy; Z90.710 Acquired absence of both cervix and uterus
CPT/HCPCS: 36415; 71045; 72131; 72158; 80053; 81001; 82140; 83735; 84100; 85025; 85610; 85730; 93306; 96361; 96374; 97162; 99285; A9579; J1650; J2270; J2405; J7030; A9270

== ENCOUNTER 2025-02-02 08:52 | Outpatient (RCR) | payer MEDICARE, SELFPAY ==
--- NOTE | 2025-02-02 10:14 | CTCCONSULT_ITS ---
Patient: SRINIVAS HAM : 1945 MR#: [id number] Page 2 of 2 CONSULTATION NOTE DATE OF CONSULTATION: 02/02/2025 NAME: SRINIVAS HAM ACCOUNT: [id number] : 1945 AGE: 79 REFERRING PHYSICIAN: Hernán Pettit MD PRIMARY PHYSICIAN: Hernán Pettit MD REASON FOR VISIT: History of lymphoma ONCOLOGY HISTORY: DIAGNOSIS: Widely spread mantle cell lymphoma s/p chemotherapy and autologous transplant DATE OF DIAGNOSIS: 08/23/2008 STAGE/TNM: Stage IVb TREATMENT HISTORY: Care?Plan Start?Date Cycle Day Intent treated with R-CHOP and beam chemotherapy and intrathecal methotrexate HISTORY OF PRESENT ILLNESS: 79-year-old female with a diagnosis of mantle cell lymphoma on August 23, 2008 stage IVb internal prognostic score for. Extensive involvement of all the lymph nodes in the neck axilla mediastinum retroperitoneum pelvic groin mesentery as well as left thyroid: Which was biopsy positive and some soft tissue behind the paraspinous muscles she had drenching right night sweats she received CHOP and Rituxan x 6 and had intrathecal methotrexate prophylaxis x 6 with a complete remission and then went to the [facility] to receive a Beam regimen plus zevalin under research protocol and then having a autologous stem cell transplant on March 13, 2009 she has remained in remission for 9 years with no long-term complications for the last 2 years patient has been under increasing stress PET CT scan August 07, 2016 showed progressive low-density lesion in the bilateral lobes of the liver with no FDG uptake indeterminate she subsequently had an ultrasound the liver on September 02 that showed 3 benign cyst she also had been having spells where she have nystagmus while she was driving and feel like she has about to pass out this happened 3 times she went in the ER and had a CT of the head that was negative and later on August 11, 2016 MRI of the brain that was normal the diagnosis of dehydration she had chronic problems with the neuropathy pain that has been treated with [facility] with various agents including tramadol she cut back the back dose from 100-50 and seems to be tolerating that well with good control she feels that the combination of lipoic acid 1 tablet a coenzyme Q 10 once a day and vitamin B 5 tablet a day has significantly helped her by eliminating her leg cramps and also reducing the numbness and tingling this was managed by neurologist at [facility] neurologist in [place] has started her tremor XL 25 mg this was further helped her neuropathic symptoms she had a cervical fusion in July 2017 because of the worsening numbness in her left arm which was due to nerve viktor von patient's have COPD diabetes and dementia patient's also have mood changes and he is declining and cognitive function which is all frustrating patient. 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 She was seen in the emergency room and had an MRI which showed some shadowing in her spine in the paraspinous area concerning for recurrence of lymphoma and here to establish care. OTHER MEDICAL HISTORY/CONDITIONS: Mantle Cell Lymphoma - dx 2008 Autologous stem cell transplant - 2008- [facility] Chronic back pain Peripheral neuropathy [place] cataract surgery - 10yrs ago Cervical spine fusion- 2016 [facility] - 1991 Laminectomy L4-L5 - 1976 T and A- as child FAMILY HISTORY: Father:?Colon?Cancer?-?dx?90 Sibling:?Breast?-?-?dx?65 Cancer?History:?Maternal?aunt?-?breast SOCIAL HISTORY: 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 Tobacco?Use:?Denies ETOH?Use:?Denies Drug?Note:?Denies Social?History?Note:?Lives?alone SECOND CRUSHER HISTORY: Menarche?-?Age:?12 Menopause:?30 :?0 Live?Births:?0 MEDICATIONS: 1. alpha lipoic acid - 600 mg 1 Capsule Daily 2. Azo Cranberry - 450-30-50 vw-ut-xeufveb 1 tab Daily 3. CoQ10 SG 100 - 100-100 mg-unit 1 Capsule Twice a Day 4. Joint Support Complex - [id number] mg 1 Capsule Twice a Day 5. magnesium glycinate - 100 mg 2 tab Daily 6. Metamucil (with sugar) - 3.4 gram/7 gram Daily 7. traMADol - 50 mg 1 tab Daily 8. ZyrTEC - 10 mg 1 tab Daily Medications Last Reconciled by Nhi Grande RN on 02/02/2025 ALLERGIES: REVIEW OF SYSTEMS: A complete 14-point review of systems was performed and is negative except as noted in interval history. PHYSICAL EXAMINATION: VITAL SIGNS: Temperature?99.1, B/P?130/76, Height?64?inches, Oxygen?Saturation?97% Weight?157?lbs PAIN: 0 - No pain ECOG Performance Status: 0 - Asymptomatic and fully active GENERAL APPEARANCE: Appears well, in no apparent distress, appropriately interactive. HEENT: Normocephalic, no temporal wasting, normal conjunctiva, no scleral icterus, normal hearing, lips without lesions, neck normal range of motion. CARDIOVASCULAR: Not assessed. PULMONARY: Normal respiratory effort, no respiratory distress or use of accessory muscles, speaking in full sentences, no tachypnea. EXTREMITIES: No pedal edema or cyanosis. SKIN: Normal skin appearance. NEUROLOGIC: Alert and oriented x4. PSHYCHIATRIC: Appropriate affect, mood normal, behavior normal, intact thought and speech. LABORATORY DATA: I have personally reviewed and interpreted each of the patient?s relevant lab tests, abnormal findings are below: Date ASSESSMENT/PLAN: Concern for recurrent mantle cell lymphoma Will do PET CT scan to evaluate for lymphoma Patient do not have much symptoms at this time Will do LDH uric acid Refer to Dr. See for evaluation and if needed for bone marrow biopsy RTC in 3 to 4 weeks to go over the PET scan and labs ORDERS: Order # Description [id number] Comprehensive Metabolic Panel - 12 + CBC with Auto Diff [id number] Uric Acid, Serum [id number] Lactate Dehydrogenase (LDH) [id number] Initial PET/CT of Skull to Mid-Thigh [id number] Follow Up 2 Week RETURN TO CLINIC: BILLING AND COMPLIANCE: I reviewed external records from providers outside my specialty as summarized above. I spent a total of 50 minutes on this patient?s care on the day of their visit excluding time spent related to any billed procedures. This time includes time spent with the patient as well as time spent documenting in the medical record, reviewing patients records and tests, obtaining history, placing orders, communicating with other healthcare professionals, counseling the patient, family or caregiver, and/or care coordination for the diagnoses above. Electronically Signed by: Jarett Tripathi MD T: 10:11 AM CC: PCP: Pettit, Hernán Referring: Hernán Pettit This document was completed utilizing speech recognition software. Grammatical errors, random word insertions, pronoun errors, and incomplete sentences are an occasional consequence of this system due to software limitations, ambient noise, and hardware issues. Any formal questions or concerns about the content, text or information contained within the body of this dictation should be directly addressed to the provider for clarification.
== END 2025-03-04 23:59 | disposition home or self-care (01) ==
LOC: SCTC 08:52
PROVIDERS: PCP Family Medicine; Referring Provider Family Medicine; Visit Provider Internal Medicine Hematology & Oncology
DX: Z08 Encounter for follow-up examination after completed treatment for malignant neoplasm (principal); Z85.72 Personal history of non-Hodgkin lymphomas
CPT/HCPCS: 99213; G0463

== ENCOUNTER → 2025-02-02 | Outpatient (CLI) | payer MEDICARE, SELFPAY ==
[2025-02-02 11:50] LABS: Basophils # (Auto) 0.1 Thou/mm3 (0.0-0.2); Basophils % (Auto) 1 % (0-2.5); Eosinophils # (Auto) 0.4 Thou/mm3 (0.0-0.5); Eosinophils % (Auto) 5 % (0-10); Hematocrit 41.4 % (36.0-46.0); Hemoglobin 13.5 g/dL (12.0-16.0); Immature Granulocytes % (Auto) 0 % (0-0); Immature Granulocytes Auto 0.03 Thou/mm3 (0.00-0.00); Lymphocytes # (Auto) 1.3 Thou/mm3 (1.0-4.8); Lymphocytes % (Auto) 14 % (10-50); Mean Corpuscular HGB Conc 32.6 g/dl (31.0-37.0); Mean Corpuscular Hemoglobin 29.6 pg (25.0-35.0); Mean Corpuscular Volume 91 fL (80-100); Monocytes # (Auto) 0.7 Thou/mm3 (0.0-0.8); Monocytes % (Auto) 8 % (0-12); Neutrophils # (Auto) 6.3 Thou/mm3 (1.8-7.7); Neutrophils % (Auto) 72 % (37-80); Nucleated Red Blood Cell % 0 /100 WBC (0); Platelet Count 232 Thou/mm3 (140-440); RDW Standard Deviation 44.2 fL (36.4-46.3); Red Blood Count 4.56 Miln/mm3 (4.00-5.20); White Blood Count 8.7 Thou/mm3 (3.6-11.0)
[2025-02-02 12:16] LABS: Alanine Aminotransferase < 7 U/L (10-49); Albumin/Globulin Ratio 1.9 (1.2-2.2); Alkaline Phosphatase 73 U/L (46-116); Anion Gap 10 (7-16); Aspartate Amino Transferase 12 U/L (0-34); BUN/Creatinine Ratio 15 Ratio (12-20); Bilirubin,Total 0.5 mg/dL (0.3-1.2); Blood Urea Nitrogen 15 mg/dL (9-23); Carbon Dioxide 26.3 mMol/L (20.0-31.0); Chloride 107 mMol/L (98-107); Globulin 2.1 gm/dL (2.3-3.5); Glucose 104 mg/dL (74-106); LDH (Lactate Dehydrogenase) 143 U/L (120-246); Osmolality,Calculated 285 (275-295); Potassium 4.1 mMol/L (3.4-5.1); Sodium 143 mMol/L (136-145); Total Protein 6.1 gm/dL (5.7-8.2); Uric Acid 5.1 mg/dL (3.1-7.8); eGFR 57 See Note
== END | disposition home or self-care (01) ==
LOC: SCTO 10:10
PROVIDERS: PCP Family Medicine; Referring Provider Internal Medicine Hematology & Oncology; Visit Provider Internal Medicine Hematology & Oncology
DX: Z85.72 Personal history of non-Hodgkin lymphomas (principal)
CPT/HCPCS: 36415; 80053; 83615; 84550; 85025

== ENCOUNTER → 2025-03-28 | Outpatient (CLI) | payer MEDICARE, SELFPAY ==
--- NOTE | 2025-03-28 09:20 | XR_ITS ---
EXAMINATION: PET/CT FUSION SKULL TO THIGH EXAM DATE AND TIME: March 28, 2025 1045 hours INDICATIONS: Diagnosis lymphoma posttreatment CTDI:vol (mGy) 5.57 DLP: (mGycm) 508.52 PROCEDURE: 15.5 mCi FDG was administered intravenously To allow for distribution and uptake of radiotracer, the patient was allowed to rest quietly in a shielded room. Imaging was performed on an integrated 16-slice PET/CT scanner, with scanning from the skull base to the mid thigh. Serum blood glucose at the time of the injection was measured 100 mg/dL. CT scanning was performed without oral or intravenous contrast material. FINDINGS: Head and Neck: There is no syed hypermetabolism in the neck. The visualized portions of the brain are normal in appearance on CT. Chest: 41 x 20 x 38 mm hypermetabolic right paraspinal mass , T8-T9 level Abdomen and Pelvis: There is no syed hypermetabolism in retroperitoneal or pelvic chains. The spleen is normal in size and FDG avidity. Musculoskeletal: Marrow uptake is within normal range. IMPRESSION: 41 x 20 x 30 mm hypermetabolic right paraspinal mass, T8-T9 level This mass is amenable to CT-guided percutaneous biopsy as clinically warranted
== END | disposition home or self-care (01) ==
PROVIDERS: PCP Family Medicine; Referring Provider Internal Medicine Hematology & Oncology; Visit Provider Internal Medicine Hematology & Oncology
DX: C83.10 Mantle cell lymphoma, unspecified site (principal); C83.18 Mantle cell lymphoma, lymph nodes of multiple sites; C83.19 Mantle cell lymphoma, extranodal and solid organ sites; G95.89 Other specified diseases of spinal cord
CPT/HCPCS: 78815; A9552

== ENCOUNTER 2025-04-06 13:51 | Outpatient (RCR) | payer MEDICARE, SELFPAY ==
--- NOTE | 2025-04-24 00:22 | CTCFLWUP_ITS ---
Patient: NANCY HAM : 1945 Page 5 of 7 FOLLOW UP NOTE DATE OF SERVICE: 04/06/2025 NAME: NANCY HAM ACCOUNT: [id number] : 1945 AGE: 79 INTERVAL HISTORY: DIAGNOSIS: Nancy Ham, a 79-year-old female with mantle cell lymphoma history since 2007, presented with a newly discovered [id number] hypermetabolic right paraspinal mass on PET-CT. She reported bra-area discomfort worsening throughout the day and chronic neuropathy managed with lipoic acid after discontinuing tramadol. Previously treated with R-CHOP, intrathecal methotrexate, and autologous stem cell transplant, she's been in remission for 16 years. Plan includes paraspinal mass biopsy, bone marrow biopsy, and transplant specialist consultation for suspected lymphoma recurrence. Chief Complaint Hypermetabolic right paraspinal mass found on PET-CT scan, pain in bra area by afternoon History of Present Illness Nancy Ham, a 79-year-old female with a history of mantle cell lymphoma diagnosed in August 2008, presents for follow-up after a recent PET-CT scan revealed a hypermetabolic right paraspinal mass. The patient reports no current symptoms related to this finding. The PET-CT scan showed a 41 x 20 x 30 millimeter hypermetabolic right paraspinal mass located from T2 to T9, outside the spine. When asked about symptoms, Ms. Ham denies any specific complaints related to this area. However, she does report ongoing discomfort related to wearing bras, describing a feeling of compression and binding that worsens throughout the day. This discomfort typically starts in the morning and becomes very painful by afternoon. The patient mentions frequently changing bras in an attempt to find one that doesn't cause pain. Ms. Ham continues to experience chronic problems with neuropathy, for which she takes lipoic acid to help with leg cramps. She recently discontinued tramadol. The patient also reports a history of passing out three times in the past year, which was attributed to dehydration after a negative CT head and normal brain MRI in August. The patient's last lymphoma treatment included R-CHOP chemotherapy, intrathecal methotrexate, and an autologous stem cell transplant. She has been in remission for 16 years. Ms. Ham mentions being very active and not feeling her age of 79. She recently experienced the loss of her in June, who had Alzheimer's and Parkinson's disease. Medications and Supplements - R-CHOP - Received in the past for mantle cell lymphoma treatment - Methotrexate (intrathecal) - Received 6 times in the past - BEAM regimen - Received in the past, followed by autologous stem cell transplant - Tramadol - Recently discontinued - Lipoic acid - Taking for leg cramps Review of Systems General: Negative for fever, chills, fatigue, or weight changes. HEENT: Positive for nystagmus when driving. Cardiovascular: Positive for passing out 3 times in a year. Musculoskeletal: Positive for back pain, discomfort in left arm, and leg cramps. Neurological: Positive for neuropathy. Other: Positive for bra-related discomfort, including binding and compression sensation in the afternoon. Laboratory, Imaging, and Diagnostic Test Results - PET-CT scan (date not specified): - 41 x 20 x 30 mm hypermetabolic right paraspinal mass in T2 to T9 - Previous results: - PET-CT scan (August 2008): - Extensive involvement of lymph nodes in neck, axilla, mediastinum, retroperitoneum, pelvic groin, mesentery - Positive soft tissue behind paraspinal muscles - Left thyroid involvement - CT head (date not specified): Negative - MRI brain (August 11 not specified): Normal - Liver ultrasound (date not specified): 3 benign cysts DATE OF DIAGNOSIS: 08/23/2008 STAGE/TNM: Stage IVb ONCOLOGY HISTORY: DIAGNOSIS: Widely spread mantle cell lymphoma s/p chemotherapy and autologous transplant DATE OF DIAGNOSIS: 08/23/2008 STAGE/TNM: Stage IVb TREATMENT HISTORY: Care?Plan Start?Date Cycle Day Intent HISTORY OF PRESENT ILLNESS: 79-year-old female with a diagnosis of mantle cell lymphoma on August 23, 2008 stage IVb internal prognostic score for. Extensive involvement of all the lymph nodes in the neck axilla mediastinum retroperitoneum pelvic groin mesentery as well as left thyroid: Which was biopsy positive and some soft tissue behind the paraspinous muscles she had drenching right night sweats she received CHOP and Rituxan x 6 and had intrathecal methotrexate prophylaxis x 6 with a complete remission and then went to the [facility] to receive a Beam regimen plus zevalin under research protocol and then having a autologous stem cell transplant on March 13, 2009 she has remained in remission for 9 years with no long-term complications for the last 2 years patient has been under increasing stress PET CT scan August 07, 2016 showed progressive low-density lesion in the bilateral lobes of the liver with no FDG uptake indeterminate she subsequently had an ultrasound the liver on September 02 that showed 3 benign cyst she also had been having spells where she have nystagmus while she was driving and feel like she has about to pass out this happened 3 times she went in the ER and had a CT of the head that was negative and later on August 11, 2016 MRI of the brain that was normal the diagnosis of dehydration she had chronic problems with the neuropathy pain that has been treated with [facility] with various agents including tramadol she cut back the back dose from 100-50 and seems to be tolerating that well with good control she feels that the combination of lipoic acid 1 tablet a coenzyme Q 10 once a day and vitamin B 5 tablet a day has significantly helped her by eliminating her leg cramps and also reducing the numbness and tingling this was managed by neurologist at [facility] neurologist in [place] has started her tremor XL 25 mg this was further helped her neuropathic symptoms she had a cervical fusion in July 2017 because of the worsening numbness in her left arm which was due to nerve viktor von patient's have COPD diabetes and dementia patient's also have mood changes and he is declining and cognitive function which is all frustrating patient. 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 She was seen in the emergency room and had an MRI which showed some shadowing in her spine in the paraspinous area concerning for recurrence of lymphoma and here to establish care. 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 alpha lipoic acid - 600 mg 1 Capsule Daily 2. Azo Cranberry - 450-30-50 ax-pe-dvpiigr 1 tab Daily 3. CoQ10 SG 100 - 100-100 mg-unit 1 Capsule Twice a Day 4. Joint Support Complex - 913-834-83-0.5 mg 1 Capsule Twice a Day 5. magnesium glycinate - 100 mg 2 tab Daily 6. Metamucil (with sugar) - 3.4 gram/7 gram Daily 7. ZyrTEC - 10 mg 1 tab Daily Medications Last Reconciled by Radha Serrato MA on 04/06/2025 ALLERGIES: No Known Drug Allergies REVIEW OF SYSTEMS: A complete 14-point review of systems was performed and is negative except as noted in interval history. PHYSICAL EXAMINATION: VITAL SIGNS: Temperature?95.3, B/P?127/78, Oxygen?Saturation?98% Weight?158?lbs PAIN: 0 - No pain ECOG Performance Status: 1 - Symptomatic; ambulatory; restricted in strenuous activity GENERAL APPEARANCE: Appears well, in no apparent distress, appropriately interactive. HEENT: Normocephalic, no temporal wasting, normal conjunctiva, no scleral icterus, normal hearing, lips without lesions, neck normal range of motion. CARDIOVASCULAR: Not assessed. PULMONARY: Normal respiratory effort, no respiratory distress or use of accessory muscles, speaking in full sentences, no tachypnea. EXTREMITIES: No pedal edema or cyanosis. SKIN: Normal skin appearance. NEUROLOGIC: Alert and oriented x4. PSHYCHIATRIC: Appropriate affect, mood normal, behavior normal, intact thought and speech. LABORATORY DATA: I have personally reviewed and interpreted each of the patient?s relevant lab tests, abnormal findings are below: Date 02/02/25 ??WHITE?BLOOD?COUNT?(Thou/mm3) 8.7 ??RED?BLOOD?COUNT?(Miln/mm3) 4.56 ??HEMOGLOBIN?(gm/dl) 13.5 ??HEMATOCRIT?(%) 41.4 ??PLATELET?COUNT?(Thou/mm3) 232 ??NEUTROPHILS?%,?AUTO?(%) 72 ??LYMPH?%,?AUTO?(%) 14 ??NEUTROPHILS,?AUTO?(Thou/mm3) 6.3 ??GLUCOSE,RANDOM?(mg/dL) 104 ??BLOOD?UREA?NITROGEN?(mg/dL) 15 ??CREATININE?(mg/dL) 1.00 ??SODIUM?(mmol/L) 143 ??POTASSIUM?(mmol/L) 4.1 ??CHLORIDE?(mmol/L) 107 ??CrCl?(CandG)?(ml/min) 51.28 ??AST/SGOT?(Unit/L) 12 ??ALT/SGPT?(Unit/L) <?7?L ??ALKALINE?PHOSPHATASE?(Unit/L) 73 ??BILIRUBIN,?TOTAL?(mg/dL) 0.5 ??PROTEIN?TOTAL?(gm/dl) 6.1 ??ALBUMIN,?SERUM?(gm/dl) 4.0 ??GLOBULIN?(gm/dl) 2.1?L ??ALBUMIN/GLOBULIN?RATIO 1.9 ??CALCIUM,?SERUM?(mg/dL) 9.0 ??CALCIUM?SERUM?(CORRECTED)?(mg/dL) 9.0 ??LDH,?TOTAL?(Unit/L) 143 ASSESSMENT/PLAN: Concern for recurrent mantle cell lymphoma Nancy Ham, 79-year-old female with a history of mantle cell lymphoma (MCL) in 2007, now presenting with a newly discovered paraspinal mass on PET-CT scan, suspicious for recurrence. Suspected recurrence of mantle cell lymphoma Assessment: PET-CT scan reveals a [id number] mm hypermetabolic right paraspinal mass from T2 to T9, highly suspicious for recurrence of mantle cell lymphoma. Patient is currently asymptomatic. Previous history includes stage 4 MCL in 2008 with extensive involvement of lymph nodes, thyroid, and paraspinal soft tissue. Patient achieved complete response after R-CHOP chemotherapy, intrathecal methotrexate, and autologous stem cell transplant. Current presentation is concerning for relapse after 16 years of remission. Differential diagnosis includes transformed large B-cell lymphoma, though MCL recurrence is considered 90% likely. Plan: - Schedule biopsy of paraspinal mass with Dr. Caedna - Schedule bone marrow biopsy - Refer to Dr. Mckenzie See, transplant specialist and leukemia expert, for consultation (telephone appointment acceptable) - If biopsy confirms recurrence: - Initiate second-line therapy (specifics to be determined based on biopsy results) - Consider future CAR-T therapy if needed - Educate patient on the possibility of needing advanced treatments like CAR-T therapy at specialized centers (e.g., [facility]) if multiple relapses occur - Follow up after biopsy results to discuss findings and treatment plan Chronic neuropathy Assessment: Patient reports ongoing issues with neuropathy, likely a long-term complication from previous chemotherapy treatments. Currently managing symptoms with lipoic acid supplementation. Recently discontinued tramadol due to unspecified reasons. Plan: - Continue lipoic acid supplementation for neuropathy management - Monitor neuropathy symptoms and adjust management as needed Bra-related discomfort Assessment: Patient reports pain and discomfort related to wearing bras, describing feelings of compression and binding. Symptoms worsen throughout the day, becoming very painful by afternoon. This discomfort may be related to the paraspinal mass location or could be a separate issue. Plan: - Recommend comfortable, non-binding clothing options - Reassess bra-related discomfort after treatment of paraspinal mass to determine if symptoms improve or require further evaluation ORDERS: Order # Description [id number] Comprehensive Metabolic Panel - 12 + CBC with Auto Diff + Uric Acid, Serum [id number] Lactate Dehydrogenase (LDH) [id number] MD Follow Up 4 Week [id number] MRI + C Spine + T Spine + L Spine + With Contrast [id number] MRI + Brain + With Contrast RETURN TO CLINIC: I reviewed the diagnosis, prognosis, and recommended treatment/procedure options with the patient (and/or their legal veterans employment representative), including the potential benefits, risks, side effects and alternative therapies. We also discussed the option of no treatment and the possibility of clinical trial participation, if applicable. All questions were addressed, and they demonstrated understanding. They provided informed consent to proceed with the proposed plan of care. BILLING AND COMPLIANCE: I reviewed external records from providers outside my specialty as summarized above. I spent a total of 50 minutes on this patient?s care on the day of their visit excluding time spent related to any billed procedures. This time includes time spent with the patient as well as time spent documenting in the medical record, reviewing patients records and tests, obtaining history, placing orders, communicating with other healthcare professionals, counseling the patient, family or caregiver, and/or care coordination for the diagnoses above. Electronically Signed by: Jarett Tripathi MD T: 12:20 AM CC: PCP: Andreas Pettit Referring: Andreas Pettit This document was completed utilizing speech recognition software. Grammatical errors, random word insertions, pronoun errors, and incomplete sentences are an occasional consequence of this system due to software limitations, ambient noise, and hardware issues. Any formal questions or concerns about the content, text or information contained within the body of this dictation should be directly addressed to the provider for clarification.
== END 2025-05-04 23:59 | disposition home or self-care (01) ==
LOC: SCTC 13:51
PROVIDERS: PCP Family Medicine; Referring Provider Family Medicine; Visit Provider Internal Medicine Hematology & Oncology
DX: C83.1A Mantle cell lymphoma, in remission (principal); R22.2 Localized swelling, mass and lump, trunk; Z92.21 Personal history of antineoplastic chemotherapy; Z94.84 Stem cells transplant status; G62.9 Polyneuropathy, unspecified
CPT/HCPCS: 99212; G0463

== ENCOUNTER → 2025-05-08 | Outpatient (CLI) | payer MEDICARE, SELFPAY ==
[2025-05-08 12:10] LABS: Basophils # (Auto) 0.1 Thou/mm3 (0.0-0.2); Basophils % (Auto) 1 % (0-2.5); Eosinophils # (Auto) 0.2 Thou/mm3 (0.0-0.5); Eosinophils % (Auto) 2 % (0-10); Hematocrit 42.6 % (36.0-46.0); Hemoglobin 14.0 g/dL (12.0-16.0); Immature Granulocytes Auto 0.12 Thou/mm3 (0.00-0.00); Lymphocytes # (Auto) 0.6 Thou/mm3 (1.0-4.8); Lymphocytes % (Auto) 5 % (10-50); Mean Corpuscular HGB Conc 32.9 g/dl (31.0-37.0); Mean Corpuscular Hemoglobin 30.0 pg (25.0-35.0); Mean Corpuscular Volume 91 fL (80-100); Monocytes # (Auto) 0.8 Thou/mm3 (0.0-0.8); Monocytes % (Auto) 8 % (0-12); Neutrophils # (Auto) 9.1 Thou/mm3 (1.8-7.7); Neutrophils % (Auto) 83 % (37-80); Nucleated Red Blood Cell # 0.00 Thou/mm3 (0.00-0.00); Nucleated Red Blood Cell % 0 /100 WBC (0); Platelet Count 183 Thou/mm3 (140-440); RDW Standard Deviation 49.1 fL (36.4-46.3); Red Blood Count 4.67 Miln/mm3 (4.00-5.20); White Blood Count 10.9 Thou/mm3 (3.6-11.0)
[2025-05-08 12:58] LABS: Alanine Aminotransferase 7 U/L (10-49); Albumin, Serum 4.1 gm/dL (3.4-4.8); Albumin/Globulin Ratio 2.0 (1.2-2.2); Alkaline Phosphatase 136 U/L (46-116); Anion Gap 12 (7-16); Aspartate Amino Transferase 17 U/L (0-34); BUN/Creatinine Ratio 15 Ratio (12-20); Bilirubin,Total 0.6 mg/dL (0.3-1.2); Blood Urea Nitrogen 17 mg/dL (9-23); Calcium 9.7 mg/dL (8.3-10.6); Calcium (Corrected) 9.7 mg/dL (8.5-10.1); Carbon Dioxide 24.3 mMol/L (20.0-31.0); Chloride 106 mMol/L (98-107); Creatinine (Component) 1.1 mg/dL (0.6-1.3); Globulin 2.1 gm/dL (2.3-3.5); Glucose 112 mg/dL (74-106); LDH (Lactate Dehydrogenase) 164 U/L (120-246); Osmolality,Calculated 285 (275-295); Potassium 4.0 mMol/L (3.4-5.1); Sodium 142 mMol/L (136-145); Total Protein 6.2 gm/dL (5.7-8.2); Uric Acid 2.2 mg/dL (3.1-7.8); eGFR 51 See Note
== END | disposition home or self-care (01) ==
LOC: CDIM 11:36 → SCTO 11:39
PROVIDERS: PCP Family Medicine; Referring Provider Internal Medicine Hematology & Oncology; Visit Provider Internal Medicine Hematology & Oncology
DX: C83.10 Mantle cell lymphoma, unspecified site (principal)
CPT/HCPCS: 36415; 80053; 83615; 84550; 85025

== ENCOUNTER → 2025-06-24 | Outpatient (CLI) | payer MEDICARE, SELFPAY ==
--- NOTE | 2025-06-24 14:00 | XR_ITS ---
Examination: MRI brain with intravenous contrast Technique: Axial sagittal coronal brain MRI images post intravenous contrast Date and time: June 24, 2025 1414 hrs., Comparison January 12, 2017 Indications: Diagnosis Mantle cell lymphoma, headaches dizziness shaped kidney is 1 week Findings: Ventricles are not enlarged. No mass effect upon the ventricular system No effacement cerebral sulci Diffuse moderate cerebral atrophy No abnormal enhancing cerebellar or cerebral lesions No abnormal extra-axial enhancement Pituitary is not enlarged, no pituitary microadenoma Impression: No abnormal enhancing cerebellar or cerebral lesions
--- NOTE | 2025-06-24 14:30 | XR_ITS ---
Examination: MRI cervical spine with intravenous contrast Technique: Axial sagittal MR images cervical spine post intravenous ministration 13 cc gadolinium Date and time: June 24, 2025 1414 hrs. Indications: Diagnosis Mantle cell lymphoma, headaches dizziness weakness neck pain one week. Findings: Adequate alignment cervical vertebral bodies Extensive magnetic susceptibility artifact secondary to cervical fusion C4-C7 No localized enlargement cervical cord Contrast images do not demonstrate abnormal osseous epidural or cervical cord enhancement Impression: Postcontrast images do not demonstrate abnormal osseous epidural or cervical cord enhancement
== END | disposition home or self-care (01) ==
PROVIDERS: PCP Family Medicine; Referring Provider Internal Medicine Hematology & Oncology; Visit Provider Internal Medicine Hematology & Oncology
DX: C83.10 Mantle cell lymphoma, unspecified site (principal); C82.19 Follicular lymphoma grade II, extranodal and solid organ sites
CPT/HCPCS: 70552; 72142; A9577

== ENCOUNTER → 2025-06-28 | Outpatient (CLI) | payer MEDICARE, SELFPAY ==
--- NOTE | 2025-06-28 08:45 | XR_ITS ---
Examination: MRI thoracic spine with intravenous contrast TECHNIQUE: Multiple sagittal axial MRI thoracic spine images post intravenous ministration 13 cc gadolinium Date and time: June 28, 2025, 0930 hours, comparison PET/CT scan March 28, 2025 INDICATIONS: Diagnosis Mantle cell lymphoma,. FINDINGS: Soft tissue enhancing right paraspinal tumor mass T7-T8 level which has decreased in size compared to the PET CT scan March 28, 2025 Current anterior posterior dimension 25 mm, mediolateral dimension 8mm compared to 41 x 10 mm on the PET/CT scan No extension this tumor mass into the thecal sac No vertebral body compression fracture IMPRESSION: Treatment response with decrease in size of right paraspinal tumor mass T7-T8 level, measuring 25 x 8 mm compared to 41 x [address] scan March 28, 2025
--- NOTE | 2025-06-28 09:12 | XR_ITS ---
Examination: MRI lumbar spine with intravenous contrast TECHNIQUE: MR axial sagittal images lumbar spine post intravenous ministration 13 cc gadolinium Date and time: June 28, 2025, 10:25 AM, comparison MRI lumbar spine pre and postcontrast December 26, 2024, PET/CT scan March 28, 2025 INDICATIONS: Diagnosis Mantle cell lymphoma, abnormal contrast enhancement involving the upper margin of L4 posterior inferior margin L3 and posterior superior margin L2 as well as inferior margin of L1 on MRI study December 26, 2024 FINDINGS: Identical enhancement involving the L2 vertebral body No definite enhancement involving the L3 or L4 vertebral bodies which showed significant enhancement on the prior study No new abnormal areas of enhancement No enhancing tumor impinging upon the conus medullaris IMPRESSION: Significant treatment response, no current abnormal enhancement involving the L3 or L4 vertebral bodies compared to the MRI study December 26, 2024
== END | disposition home or self-care (01) ==
LOC: SMRI 08:49
PROVIDERS: PCP Family Medicine; Referring Provider Internal Medicine Hematology & Oncology; Visit Provider Internal Medicine Hematology & Oncology
DX: M54.50 Low back pain, unspecified (principal); C83.19 Mantle cell lymphoma, extranodal and solid organ sites
CPT/HCPCS: 72147; 72149; A9577

== ENCOUNTER 2025-07-04 10:33 | Outpatient (RCR) | payer MEDICARE, SELFPAY ==
--- NOTE | 2025-06-12 13:11 | CTCFLWUP_ITS ---
Patient: NANCY HAM : 1945 Page 3 of 5 FOLLOW UP NOTE DATE OF SERVICE: 06/12/2025 NAME: NANCY HAM ACCOUNT: [id number] : 1945 AGE: 79 INTERVAL HISTORY: Patient is complaing of fatigue and tiredness , for 2 days after chemotherapy . patient lives alone . Patient is requesting home nurse to help her with iv fluids and labs for chemotherapy. Patient is yet to get her calquence. ONCOLOGY HISTORY: DIAGNOSIS: Widely spread mantle cell lymphoma s/p chemotherapy and autologous transplant DATE OF DIAGNOSIS: 08/23/2008 STAGE/TNM: Stage IVb TREATMENT HISTORY: Care?Plan Start?Date Cycle Day Intent Rituxan?375?+?Bendamustine?90?Riley 05/11/2025 1 28 Palliative Rituxan?375?+?Bendamustine?90?Riley 05/22/2025 1 28 Induction-Primary HISTORY OF PRESENT ILLNESS: 79-year-old female with a diagnosis of mantle cell lymphoma on August 23, 2008 stage IVb internal prognostic score for. Extensive involvement of all the lymph nodes in the neck axilla mediastinum retroperitoneum pelvic groin mesentery as well as left thyroid: Which was biopsy positive and some soft tissue behind the paraspinous muscles she had drenching right night sweats she received CHOP and Rituxan x 6 and had intrathecal methotrexate prophylaxis x 6 with a complete remission and then went to the [facility] to receive a Beam regimen plus zevalin under research protocol and then having a autologous stem cell transplant on March 13, 2009 she has remained in remission for 9 years with no long-term complications for the last 2 years patient has been under increasing stress PET CT scan August 07, 2016 showed progressive low-density lesion in the bilateral lobes of the liver with no FDG uptake indeterminate she subsequently had an ultrasound the liver on September 02 that showed 3 benign cyst she also had been having spells where she have nystagmus while she was driving and feel like she has about to pass out this happened 3 times she went in the ER and had a CT of the head that was negative and later on August 11, 2016 MRI of the brain that was normal the diagnosis of dehydration she had chronic problems with the neuropathy pain that has been treated with [facility] with various agents including tramadol she cut back the back dose from 100-50 and seems to be tolerating that well with good control she feels that the combination of lipoic acid 1 tablet a coenzyme Q 10 once a day and vitamin B 5 tablet a day has significantly helped her by eliminating her leg cramps and also reducing the numbness and tingling this was managed by neurologist at [facility] neurologist in [place] has started her tremor XL 25 mg this was further helped her neuropathic symptoms she had a cervical fusion in July 2017 because of the worsening numbness in her left arm which was due to nerve viktor von patient's have COPD diabetes and dementia patient's also have mood changes and he is declining and cognitive function which is all frustrating patient. 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 She was seen in the emergency room and had an MRI which showed some shadowing in her spine in the paraspinous area concerning for recurrence of lymphoma and was started on chemotherapy with BR emergently at [facility] OTHER MEDICAL HISTORY/CONDITIONS: Mantle Cell Lymphoma - dx 2008 Autologous stem cell transplant - 2008- [facility] [place] Chronic back pain Peripheral neuropathy Brenden cataract surgery - 10yrs ago Cervical spine fusion- 2016H - 1991 Laminectomy L4-L5 - 1976 T and A- as child FAMILY HISTORY: Father:?Colon?Cancer?-?dx?90 Sibling:?Breast?-?-?dx?65 Cancer?History:?Maternal?aunt?-?breast SOCIAL HISTORY: 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 acalabrutinib maleate - 100 mg 1 tab 1 tab twice daily 2. acyclovir - 400 mg 1 tab Daily 3. allopurinol - 300 mg 1 tab Daily 4. Bactrim DS - 800-160 mg 1 tab 1 tab m w f 5. magnesium glycinate - 100 mg 2 tab Daily 6. Metamucil (with sugar) - 3.4 gram/7 gram Daily 7. ZyrTEC - 10 mg 1 tab Daily Medications Last Reconciled by Joann Riojas MD on 06/12/2025 ALLERGIES: No Known Drug Allergies REVIEW OF SYSTEMS: A complete 14-point review of systems was performed and is negative except as noted in interval history. PHYSICAL EXAMINATION: VITAL SIGNS: Temperature?98.3, B/P?126/70, Oxygen?Saturation?97% Weight?150?lbs (Change?since?05/30/25:?-3?lbs) PAIN: 0 - No pain ECOG Performance Status: 0 - Asymptomatic and fully active GENERAL APPEARANCE: Appears well, in no apparent distress, appropriately interactive. HEENT: Normocephalic, no temporal wasting, normal conjunctiva, no scleral icterus, normal hearing, lips without lesions, neck normal range of motion. CARDIOVASCULAR: Not assessed. PULMONARY: Normal respiratory effort, no respiratory distress or use of accessory muscles, speaking in full sentences, no tachypnea. EXTREMITIES: No pedal edema or cyanosis. SKIN: Normal skin appearance. NEUROLOGIC: Alert and oriented x4. PSHYCHIATRIC: Appropriate affect, mood normal, behavior normal, intact thought and speech. LABORATORY DATA: I have personally reviewed and interpreted each of the patient?s relevant lab tests, abnormal findings are below: Date 05/19/25 05/30/25 ??WHITE?BLOOD?COUNT?(Thou/mm3) 4.7 ? ??RED?BLOOD?COUNT?(Miln/mm3) 4.19 ? ??HEMOGLOBIN?(gm/dl) 12.3 11.7?L ??HEMATOCRIT?(%) 38.0 34.3?L ??PLATELET?COUNT?(Thou/mm3) 176 ? ??NEUTROPHILS?%,?AUTO?(%) 73 ? ??LYMPH?%,?AUTO?(%) 10 ? ??NEUTROPHILS,?AUTO?(Thou/mm3) 3.4 ? ??GLUCOSE,RANDOM?(mg/dL) 122?H ? ??BLOOD?UREA?NITROGEN?(mg/dL) 12 ? ??CREATININE?(mg/dL) 1.00 ? ??SODIUM?(mmol/L) 141 ? ??POTASSIUM?(mmol/L) 3.9 ? ??CHLORIDE?(mmol/L) 108?H ? ??CrCl?(CandG)?(ml/min) 49.85 ? ??AST/SGOT?(Unit/L) 15 ? ??ALT/SGPT?(Unit/L) <?7?L ? ??ALKALINE?PHOSPHATASE?(Unit/L) 80 ? ??BILIRUBIN,?TOTAL?(mg/dL) 0.5 ? ??PROTEIN?TOTAL?(gm/dl) 5.6?L ? ??ALBUMIN,?SERUM?(gm/dl) 3.8 ? ??GLOBULIN?(gm/dl) 1.8?L ? ??ALBUMIN/GLOBULIN?RATIO 2.1 ? ??CALCIUM,?SERUM?(mg/dL) 9.5 ? ??CALCIUM?SERUM?(CORRECTED)?(mg/dL) 9.7 ? ??LDH,?TOTAL?(Unit/L) 142 ? ASSESSMENT/PLAN: Concern for recurrent mantle cell lymphoma Nancy Inge, 79-year-old female with a history of mantle cell lymphoma (MCL) in 2007, now presenting with a newly discovered paraspinal mass on PET-CT scan, suspicious for recurrence. PET-CT scan reveals a [id number] mm hypermetabolic right paraspinal mass from T2 to T9, highly suspicious for recurrence of mantle cell lymphoma. Patient is currently asymptomatic. Previous history includes stage 4 MCL in 2008 with extensive involvement of lymph nodes, thyroid, and paraspinal soft tissue. Patient achieved complete response after R-CHOP chemotherapy, intrathecal methotrexate, and autologous stem cell transplant. Current presentation is concerning for relapse after 16 years of remission. Differential diagnosis includes transformed large B-cell lymphoma, though MCL recurrence is considered 90% likely. Completed 2 cycles of BR Proceed with next cycle Will add acalbrutinib once approved and as maintance Start on allopurinol as uric acid is high Start iv fluids Support with Bactrim acyclovir as ppx Chronic neuropathy Assessment: Patient reports ongoing issues with neuropathy, likely a long-term complication from previous chemotherapy treatments. Currently managing symptoms with lipoic acid supplementation. Recently discontinued tramadol due to unspecified reasons. Plan: - Continue lipoic acid supplementation for neuropathy management - Monitor neuropathy symptoms and adjust management as needed ORDERS: Order # Description [id number] Comprehensive Metabolic Panel - 12 + CBC with Auto Diff RETURN TO CLINIC: I reviewed the diagnosis, prognosis, and recommended treatment/procedure options with the patient (and/or their legal underwriting sales representative), including the potential benefits, risks, side effects and alternative therapies. We also discussed the option of no treatment and the possibility of clinical trial participation, if applicable. All questions were addressed, and they demonstrated understanding. They provided informed consent to proceed with the proposed plan of care. BILLING AND COMPLIANCE: I reviewed external records from providers outside my specialty as summarized above. I spent a total of 50 minutes on this patient?s care on the day of their visit excluding time spent related to any billed procedures. This time includes time spent with the patient as well as time spent documenting in the medical record, reviewing patients records and tests, obtaining history, placing orders, communicating with other healthcare professionals, counseling the patient, family or caregiver, and/or care coordination for the diagnoses above. Electronically Signed by: Jarett Tripathi MD T: 1:09 PM CC: PCP: Andreas Pettit Referring: Jarett Tripathi This document was completed utilizing speech recognition software. Grammatical errors, random word insertions, pronoun errors, and incomplete sentences are an occasional consequence of this system due to software limitations, ambient noise, and hardware issues. Any formal questions or concerns about the content, text or information contained within the body of this dictation should be directly addressed to the provider for clarification.
[2025-06-16 09:22] LABS: Basophils # (Auto) 0.0 Thou/mm3 (0.0-0.2); Basophils % (Auto) 1 % (0-2.5); Eosinophils # (Auto) 0.2 Thou/mm3 (0.0-0.5); Eosinophils % (Auto) 3 % (0-10); Hematocrit 35.1 % (36.0-46.0); Hemoglobin 11.8 g/dL (12.0-16.0); Immature Granulocytes Auto 0.01 Thou/mm3 (0.00-0.00); Lymphocytes # (Auto) 0.4 Thou/mm3 (1.0-4.8); Lymphocytes % (Auto) 7 % (10-50); Mean Corpuscular HGB Conc 33.6 g/dl (31.0-37.0); Mean Corpuscular Hemoglobin 30.9 pg (25.0-35.0); Mean Corpuscular Volume 92 fL (80-100); Monocytes # (Auto) 0.6 Thou/mm3 (0.0-0.8); Monocytes % (Auto) 12 % (0-12); Neutrophils # (Auto) 4.0 Thou/mm3 (1.8-7.7); Neutrophils % (Auto) 77 % (37-80); Nucleated Red Blood Cell # 0.00 Thou/mm3 (0.00-0.00); Nucleated Red Blood Cell % 0 /100 WBC (0); Platelet Count 137 Thou/mm3 (140-440); RDW Standard Deviation 49.9 fL (36.4-46.3); Red Blood Count 3.82 Miln/mm3 (4.00-5.20); White Blood Count 5.2 Thou/mm3 (3.6-11.0)
[2025-06-16 09:37] LABS: Uric Acid 4.6 mg/dL (3.1-7.8)
[2025-06-16 09:56] LABS: Alanine Aminotransferase < 7 U/L (10-49); Albumin, Serum 3.8 gm/dL (3.4-4.8); Albumin/Globulin Ratio 2.1 (1.2-2.2); Alkaline Phosphatase 73 U/L (46-116); Anion Gap 15 (7-16); Aspartate Amino Transferase 13 U/L (0-34); BUN/Creatinine Ratio 9 Ratio (12-20); Bilirubin,Total 0.4 mg/dL (0.3-1.2); Blood Urea Nitrogen 10 mg/dL (9-23); Calcium 9.4 mg/dL (8.3-10.6); Calcium (Corrected) 9.6 mg/dL (8.5-10.1); Carbon Dioxide 21.4 mMol/L (20.0-31.0); Chloride 107 mMol/L (98-107); Creatinine (Component) 1.1 mg/dL (0.6-1.3); Globulin 1.8 gm/dL (2.3-3.5); Glucose 120 mg/dL (74-106); LDH (Lactate Dehydrogenase) 135 U/L (120-246); Osmolality,Calculated 284 (275-295); Potassium 3.7 mMol/L (3.4-5.1); Sodium 143 mMol/L (136-145); Total Protein 5.6 gm/dL (5.7-8.2); eGFR 51 See Note
--- NOTE | 2025-07-09 22:02 | CTCFLWUP_ITS ---
Patient: NANCY HAM : 1945 Page 3 of 5 FOLLOW UP NOTE DATE OF SERVICE: 07/04/2025 NAME: NANCY HAM ACCOUNT: [id number] : 1945 AGE: 80 INTERVAL HISTORY: Patient is complaing of fatigue and tiredness , for 2 days after chemotherapy . patient lives alone . Patient was told that home health nurse will not be approved by insurance. Patient received IV fluids after the last chemotherapy and did well but still feels very fatigued and tired. Patient's family lives far away from here and do not have any support. Patient is yet to get her calquence. 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 Extensive involvement of all the lymph nodes in the neck axilla mediastinum retroperitoneum pelvic groin mesentery as well as left thyroid: Which was biopsy positive and some soft tissue behind the paraspinous muscles she had drenching right night sweats she received CHOP and Rituxan x 6 and had intrathecal methotrexate prophylaxis x 6 with a complete remission and then went to the [facility] to receive a Beam regimen plus zevalin under research protocol and then having a autologous stem cell transplant on March 13, 2009 she has remained in remission for 9 years with no long-term complications for the last 2 years patient has been under increasing stress PET CT scan August 07, 2016 showed progressive low-density lesion in the bilateral lobes of the liver with no FDG uptake indeterminate she subsequently had an ultrasound the liver on September 02 that showed 3 benign cyst she also had been having spells where she have nystagmus while she was driving and feel like she has about to pass out this happened 3 times she went in the ER and had a CT of the head that was negative and later on August 11, 2016 MRI of the brain that was normal the diagnosis of dehydration she had chronic problems with the neuropathy pain that has been treated with [facility] with various agents including tramadol she cut back the back dose from 100-50 and seems to be tolerating that well with good control she feels that the combination of lipoic acid 1 tablet a coenzyme Q 10 once a day and vitamin B 5 tablet a day has significantly helped her by eliminating her leg cramps and also reducing the numbness and tingling this was managed by neurologist at [facility] neurologist in [place] has started her tremor XL 25 mg this was further helped her neuropathic symptoms she had a cervical fusion in July 2017 because of the worsening numbness in her left arm which was due to nerve viktor von patient's have COPD diabetes and dementia patient's also have mood changes and he is declining and cognitive function which is all frustrating patient. 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 She was seen in the emergency room and had an MRI which showed some shadowing in her spine in the paraspinous area concerning for recurrence of lymphoma and was started on chemotherapy with BR emergently at [facility] OTHER MEDICAL HISTORY/CONDITIONS: Mantle Cell Lymphoma - dx 2008 Autologous stem cell transplant - 2008- [facility] Chronic back pain Peripheral neuropathy Brenden cataract surgery - 10yrs ago Cervical spine fusion- 2016 [facility] - 1991 Laminectomy L4-L5 - 1976 T and A- as child FAMILY HISTORY: Father:?Colon?Cancer?-?dx?90 Sibling:?Breast?-?-?dx?65 Cancer?History:?Maternal?aunt?-?breast SOCIAL HISTORY: 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 acalabrutinib maleate - 100 mg 1 tab 1 tab twice daily 2. acyclovir - 400 mg 1 tab Daily 3. allopurinol - 300 mg 1 tab Daily 4. Bactrim DS - 800-160 mg 1 tab 1 tab m w f 5. gabapentin - 100 mg 1 Capsule Daily 6. magnesium glycinate - 100 mg 2 tab Daily 7. Metamucil (with sugar) - 3.4 gram/7 gram Daily 8. ZyrTEC - 10 mg 1 tab Daily Medications Last Reconciled by Joann Riojas MD on 07/04/2025 ALLERGIES: REVIEW OF SYSTEMS: A complete 14-point review of systems was performed and is negative except as noted in interval history. PHYSICAL EXAMINATION: VITAL SIGNS: Temperature?97.6, B/P?126/75, Oxygen?Saturation?97% Weight?151?lbs (Change?since?06/20/25:?-9?lbs) PAIN: 0 - No pain ECOG Performance Status: 1 - Symptomatic; ambulatory; restricted in strenuous activity GENERAL APPEARANCE: Appears well, in no apparent distress, appropriately interactive. HEENT: Normocephalic, no temporal wasting, normal conjunctiva, no scleral icterus, normal hearing, lips without lesions, neck normal range of motion. CARDIOVASCULAR: Not assessed. PULMONARY: Normal respiratory effort, no respiratory distress or use of accessory muscles, speaking in full sentences, no tachypnea. EXTREMITIES: No pedal edema or cyanosis. SKIN: Normal skin appearance. NEUROLOGIC: Alert and oriented x4. PSHYCHIATRIC: Appropriate affect, mood normal, behavior normal, intact thought and speech. LABORATORY DATA: I have personally reviewed and interpreted each of the patient?s relevant lab tests, abnormal findings are below: Date ASSESSMENT/PLAN: Concern for recurrent mantle cell lymphoma Nancy Ham, 80-year-old female with a history of mantle cell lymphoma (MCL) in 2007, now presenting with a newly discovered paraspinal mass on PET-CT scan, suspicious for recurrence. PET-CT scan reveals a 39v57o00 mm hypermetabolic right paraspinal mass from T2 to T9, highly suspicious for recurrence of mantle cell lymphoma. Patient is currently asymptomatic. Previous history includes stage 4 MCL in 2008 with extensive involvement of lymph nodes, thyroid, and paraspinal soft tissue. Patient achieved complete response after R-CHOP chemotherapy, intrathecal methotrexate, and autologous stem cell transplant. Current presentation is concerning for relapse after 16 years of remission. Differential diagnosis includes transformed large B-cell lymphoma, though MCL recurrence is considered 90% likely. Completed 3 cycles of BR Will dose reduce Bendamustine proceed with next cycle Will add acalbrutinib once approved and as maintance Continue allopurinol support with Bactrim acyclovir as ppx Chronic neuropathy Assessment: Patient reports ongoing issues with neuropathy, likely a long-term complication from previous chemotherapy treatments. Currently managing symptoms with lipoic acid supplementation. Recently discontinued tramadol due to unspecified reasons. Plan: - Continue lipoic acid supplementation for neuropathy management - Monitor neuropathy symptoms and adjust management as needed ORDERS: Order # Description Ordering Physician Date Condition Diagnosis Account Number Status Statused By (Full Name) Statused By (Initial) Status Date User Defined Data [id number] Jarett Tripathi 07/04/2025 reduce BEndamustine by 20 percent (C83.10) Mantle cell lymphoma, unspecified site, (C85.80) Other specified types of non-Hodgkin lymphoma, unspecified site ? Approved BhumiJarett mary 07/04/2025 ? [id number] BhumiJarett mary 07/04/2025 refer to physcial therapy .. (C83.10) Mantle cell lymphoma, unspecified site, (C85.80) Other specified types of non-Hodgkin lymphoma, unspecified site ? Approved Jarett Tripathi 07/04/2025 ? [id number] Comprehensive Metabolic Panel - 12 + CBC with Auto Diff BhumiJarett mary 07/04/2025 ? (C83.10) Mantle cell lymphoma, unspecified site, (C85.80) Other specified types of non-Hodgkin lymphoma, unspecified site ? [facility] ? RETURN TO CLINIC: I reviewed the diagnosis, prognosis, and recommended treatment/procedure options with the patient (and/or their legal client account representative), including the potential benefits, risks, side effects and alternative therapies. We also discussed the option of no treatment and the possibility of clinical trial participation, if applicable. All questions were addressed, and they demonstrated understanding. They provided informed consent to proceed with the proposed plan of care. BILLING AND COMPLIANCE: I reviewed external records from providers outside my specialty as summarized above. I spent a total of 50 minutes on this patient?s care on the day of their visit excluding time spent related to any billed procedures. This time includes time spent with the patient as well as time spent documenting in the medical record, reviewing patients records and tests, obtaining history, placing orders, communicating with other healthcare professionals, counseling the patient, family or caregiver, and/or care coordination for the diagnoses above. Electronically Signed by: Jarett Tripathi MD T: 10:00 PM CC: PCP: Andreas Pettit Referring: Andreas Pettit This document was completed utilizing speech recognition software. Grammatical errors, random word insertions, pronoun errors, and incomplete sentences are an occasional consequence of this system due to software limitations, ambient noise, and hardware issues. Any formal questions or concerns about the content, text or information contained within the body of this dictation should be directly addressed to the provider for clarification.
== END 2025-07-04 23:59 | disposition home or self-care (01) ==
LOC: SCTC 10:33
PROVIDERS: PCP Family Medicine; Referring Provider Family Medicine; Visit Provider Internal Medicine Hematology & Oncology
DX: Z51.11 Encounter for antineoplastic chemotherapy (principal); C83.10 Mantle cell lymphoma, unspecified site; G62.9 Polyneuropathy, unspecified; Z94.84 Stem cells transplant status; R53.0 Neoplastic (malignant) related fatigue; Z60.2 Problems related to living alone
CPT/HCPCS: 36591; 80053; 83615; 84550; 85025; 96367; 96413; 96415; 96417; 99212; A4216; J1100; J1453; J1642; J2405; J3490; J7040; J7050; J9033; Q5115; A9270; G0463

== ENCOUNTER 2025-07-31 13:36 | Outpatient (RCR) | payer MEDICARE, SELFPAY ==
[2025-07-14 10:42] LABS: Basophils # (Auto) 0.0 Thou/mm3 (0.0-0.2); Basophils % (Auto) 1 % (0-2.5); Eosinophils # (Auto) 0.1 Thou/mm3 (0.0-0.5); Eosinophils % (Auto) 2 % (0-10); Hematocrit 34.2 % (36.0-46.0); Hemoglobin 11.8 g/dL (12.0-16.0); Immature Granulocytes Auto 0.01 Thou/mm3 (0.00-0.00); Lymphocytes # (Auto) 0.3 Thou/mm3 (1.0-4.8); Lymphocytes % (Auto) 8 % (10-50); Mean Corpuscular HGB Conc 34.5 g/dl (31.0-37.0); Mean Corpuscular Hemoglobin 32.1 pg (25.0-35.0); Mean Corpuscular Volume 93 fL (80-100); Monocytes # (Auto) 0.8 Thou/mm3 (0.0-0.8); Monocytes % (Auto) 17 % (0-12); Neutrophils # (Auto) 3.1 Thou/mm3 (1.8-7.7); Neutrophils % (Auto) 72 % (37-80); Nucleated Red Blood Cell # 0.00 Thou/mm3 (0.00-0.00); Nucleated Red Blood Cell % 0 /100 WBC (0); Platelet Count 180 Thou/mm3 (140-440); RDW Standard Deviation 51.6 fL (36.4-46.3); Red Blood Count 3.68 Miln/mm3 (4.00-5.20); White Blood Count 4.4 Thou/mm3 (3.6-11.0)
[2025-07-14 10:46] LABS: Alanine Aminotransferase 8 U/L (10-49); Albumin, Serum 4.0 gm/dL (3.4-4.8); Albumin/Globulin Ratio 1.8 (1.2-2.2); Alkaline Phosphatase 75 U/L (46-116); Anion Gap 12 (7-16); Aspartate Amino Transferase 20 U/L (0-34); BUN/Creatinine Ratio 14 Ratio (12-20); Bilirubin,Total 0.4 mg/dL (0.3-1.2); Blood Urea Nitrogen 14 mg/dL (9-23); Calcium 9.7 mg/dL (8.3-10.6); Calcium (Corrected) 9.7 mg/dL (8.5-10.1); Carbon Dioxide 23.1 mMol/L (20.0-31.0); Chloride 108 mMol/L (98-107); Creatinine (Component) 1.0 mg/dL (0.6-1.3); Globulin 2.2 gm/dL (2.3-3.5); Glucose 94 mg/dL (74-106); Osmolality,Calculated 285 (275-295); Potassium 4.1 mMol/L (3.4-5.1); Sodium 143 mMol/L (136-145); Total Protein 6.2 gm/dL (5.7-8.2); eGFR 57 See Note
--- NOTE | 2025-08-01 22:15 | CTCFLWUP_ITS ---
Patient: NANCY HAM : 1945 Page 5 of 6 FOLLOW UP NOTE DATE OF SERVICE: 07/31/2025 NAME: NANCY HAM ACCOUNT: [id number] : 1945 AGE: 80 INTERVAL HISTORY: Patient is here and have completed 4 cycles of therapy . 2 cycles are remaining . ONCOLOGY HISTORY: DIAGNOSIS: Widely spread mantle cell lymphoma s/p chemotherapy and autologous transplant DATE OF DIAGNOSIS: 08/23/2008 STAGE/TNM: Stage IVb TREATMENT HISTORY: Care?Plan Start?Date Cycle Day Intent Rituxan?375?+?Bendamustine?90?Riley 05/11/202511 01 Palliative Rituxan?375?+?Bendamustine?90?Riley 05/22/202511 01 Induction-Primary HISTORY OF PRESENT ILLNESS: 80-year-old female with a diagnosis of mantle cell lymphoma on August 23, 2008 stage IVb internal prognostic score for. Extensive involvement of all the lymph nodes in the neck axilla mediastinum retroperitoneum pelvic groin mesentery as well as left thyroid: Which was biopsy positive and some soft tissue behind the paraspinous muscles she had drenching right night sweats she received CHOP and Rituxan x 6 and had intrathecal methotrexate prophylaxis x 6 with a complete remission and then went to the [facility] to receive a Beam regimen plus zevalin under research protocol and then having a autologous stem cell transplant on March 13, 2009 she has remained in remission for 9 years with no long-term complications for the last 2 years patient has been under increasing stress PET CT scan August 07, 2016 showed progressive low-density lesion in the bilateral lobes of the liver with no FDG uptake indeterminate she subsequently had an ultrasound the liver on September 02 that showed 3 benign cyst she also had been having spells where she have nystagmus while she was driving and feel like she has about to pass out this happened 3 times she went in the ER and had a CT of the head that was negative and later on August 11, 2016 MRI of the brain that was normal the diagnosis of dehydration she had chronic problems with the neuropathy pain that has been treated with [facility] with various agents including tramadol she cut back the back dose from 100-50 and seems to be tolerating that well with good control she feels that the combination of lipoic acid 1 tablet a coenzyme Q 10 once a day and vitamin B 5 tablet a day has significantly helped her by eliminating her leg cramps and also reducing the numbness and tingling this was managed by neurologist at [facility] [address] neurologist in [place] has started her tremor XL 25 mg this was further helped her neuropathic symptoms she had a cervical fusion in July 2017 because of the worsening numbness in her left arm which was due to nerve viktor von patient's have COPD diabetes and dementia patient's also have mood changes and he is declining and cognitive function which is all frustrating patient. 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 She was seen in the emergency room and had an MRI which showed some shadowing in her spine in the paraspinous area concerning for recurrence of lymphoma and was started on chemotherapy with BR emergently at [facility] OTHER MEDICAL HISTORY/CONDITIONS: Mantle Cell Lymphoma - dx 2007 Autologous stem cell transplant - 2008- [facility] Chronic back pain Peripheral neuropathy Brenden cataract surgery - 10yrs ago Cervical spine fusion- 2016 [facility] - 1991 Laminectomy L4-L5 - 1976 T and A- as child FAMILY HISTORY: Father:?Colon?Cancer?-?dx?90 Sibling:?Breast?-?-?dx?65 Cancer?History:?Maternal?aunt?-?breast SOCIAL HISTORY: 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 Tobacco?Use:?Denies ETOH?Use:?Denies Drug?Note:?Denies Social?History?Note:?Lives?alone [employer] HISTORY: Menarche?-?Age:?12 Menopause:?30 :?0 Live?Births:?0 MEDICATIONS: 1. acalabrutinib maleate - 100 mg 1 tab 1 tab twice daily 2. acyclovir - 400 mg 1 tab Daily 3. allopurinol - 300 mg 1 tab Daily 4. Bactrim DS - 800-160 mg 1 tab 1 tab m w f 5. gabapentin - 100 mg 1 Capsule Daily 6. magnesium glycinate - 100 mg 2 tab Daily 7. Metamucil (with sugar) - 3.4 gram/7 gram Daily 8. omeprazole - 20 mg 1 tab Daily 9. prednisone - 10 mg 1 tab Daily 10. ZyrTEC - 10 mg 1 tab Daily Medications Last Reconciled by Joann Cano MA on 07/31/2025 ALLERGIES: No Known Drug Allergies REVIEW OF SYSTEMS: A complete 14-point review of systems was performed and is negative except as noted in interval history. PHYSICAL EXAMINATION: VITAL SIGNS: Temperature?99.6, B/P?117/74, Oxygen?Saturation?98% Weight?153?lbs (Change?since?07/18/25:?-4.8?lbs) PAIN: 0 - No pain ECOG Performance Status: 1 - Symptomatic; ambulatory; restricted in strenuous activity GENERAL APPEARANCE: Appears well, in no apparent distress, appropriately interactive. HEENT: Normocephalic, no temporal wasting, normal conjunctiva, no scleral icterus, normal hearing, lips without lesions, neck normal range of motion. CARDIOVASCULAR: Not assessed. PULMONARY: Normal respiratory effort, no respiratory distress or use of accessory muscles, speaking in full sentences, no tachypnea. EXTREMITIES: No pedal edema or cyanosis. SKIN: Normal skin appearance. NEUROLOGIC: Alert and oriented x4. PSHYCHIATRIC: Appropriate affect, mood normal, behavior normal, intact thought and speech. LABORATORY DATA: I have personally reviewed and interpreted each of the patient?s relevant lab tests, abnormal findings are below: Date 06/16/25 07/14/25 ??WHITE?BLOOD?COUNT?(Thou/mm3) 5.2 4.4 ??RED?BLOOD?COUNT?(Miln/mm3) 3.82?L 3.68?L ??HEMOGLOBIN?(gm/dl) 11.8?L 11.8?L ??HEMATOCRIT?(%) 35.1?L 34.2?L ??PLATELET?COUNT?(Thou/mm3) 137?L 180 ??NEUTROPHILS?%,?AUTO?(%) 77 72 ??LYMPH?%,?AUTO?(%) 7?L 8?L ??NEUTROPHILS,?AUTO?(Thou/mm3) 4.0 3.1 ??GLUCOSE,RANDOM?(mg/dL) 120?H 94 ??BLOOD?UREA?NITROGEN?(mg/dL) 10 14 ??CREATININE?(mg/dL) 1.10 1.00 ??SODIUM?(mmol/L) 143 143 ??POTASSIUM?(mmol/L) 3.7 4.1 ??CHLORIDE?(mmol/L) 107 108?H ??CrCl?(CandG)?(ml/min) 45.97 48.97 ??AST/SGOT?(Unit/L) 13 20 ??ALT/SGPT?(Unit/L) <?7?L 8?L ??ALKALINE?PHOSPHATASE?(Unit/L) 73 75 ??BILIRUBIN,?TOTAL?(mg/dL) 0.4 0.4 ??PROTEIN?TOTAL?(gm/dl) 5.6?L 6.2 ??ALBUMIN,?SERUM?(gm/dl) 3.8 4.0 ??GLOBULIN?(gm/dl) 1.8?L 2.2?L ??ALBUMIN/GLOBULIN?RATIO 2.1 1.8 ??CALCIUM,?SERUM?(mg/dL) 9.4 9.7 ??CALCIUM?SERUM?(CORRECTED)?(mg/dL) 9.6 9.7 ASSESSMENT/PLAN: Concern for recurrent mantle cell lymphoma Nancy Caliotte, 80-year-old female with a history of mantle cell lymphoma (MCL) in 2007, now presenting with a newly discovered paraspinal mass on PET-CT scan, suspicious for recurrence. PET-CT scan reveals a 30w29p68 mm hypermetabolic right paraspinal mass from T2 to T9, highly suspicious for recurrence of mantle cell lymphoma. Patient is currently asymptomatic. Previous history includes stage 4 MCL in 2008 with extensive involvement of lymph nodes, thyroid, and paraspinal soft tissue. Patient achieved complete response after R-CHOP chemotherapy, intrathecal methotrexate, and autologous stem cell transplant. Current presentation is concerning for relapse after 16 years of remission. Differential diagnosis includes transformed large B-cell lymphoma, though MCL recurrence is considered 90% likely. Completed 3 cycles of BR Will dose reduce Bendamustine proceed with next cycle Will add acalbrutinib once approved and as maintance Continue allopurinol support with Bactrim acyclovir as ppx proceed with next cycle. Chronic neuropathy Assessment: Patient reports ongoing issues with neuropathy, likely a long-term complication from previous chemotherapy treatments. Currently managing symptoms with lipoic acid supplementation. Recently discontinued tramadol due to unspecified reasons. Plan: - Continue lipoic acid supplementation for neuropathy management - Monitor neuropathy symptoms and adjust management as needed ORDERS: Order # Description [id number] Follow Up Appointment [id number] CBC + Comprehensive Metabolic Panel [id number] Lab Appointment [id number] Follow Up Appointment [id number] CBC + Comprehensive Metabolic Panel [id number] Lab Appointment [id number] Follow Up Appointment [id number] CBC + Comprehensive Metabolic Panel [id number] Lab Appointment [id number] Follow Up Appointment RETURN TO CLINIC: I reviewed the diagnosis, prognosis, and recommended treatment/procedure options with the patient (and/or their legal b2b outside sales representative), including the potential benefits, risks, side effects and alternative therapies. We also discussed the option of no treatment and the possibility of clinical trial participation, if applicable. All questions were addressed, and they demonstrated understanding. They provided informed consent to proceed with the proposed plan of care. BILLING AND COMPLIANCE: I reviewed external records from providers outside my specialty as summarized above. I spent a total of 50 minutes on this patient?s care on the day of their visit excluding time spent related to any billed procedures. This time includes time spent with the patient as well as time spent documenting in the medical record, reviewing patients records and tests, obtaining history, placing orders, communicating with other healthcare professionals, counseling the patient, family or caregiver, and/or care coordination for the diagnoses above. Electronically Signed by: {Object.Sanct_ID*[email or web address]@M}, {Object.Sanct_ID*PnP.Suffix@U} D: {Object.Sanct_Date} T: {Object.Sanct_Time} CC: PCP: Andreas Pettit Referring: Andreas Pettit This document was completed utilizing speech recognition software. Grammatical errors, random word insertions, pronoun errors, and incomplete sentences are an occasional consequence of this system due to software limitations, ambient noise, and hardware issues. Any formal questions or concerns about the content, text or information contained within the body of this dictation should be directly addressed to the provider for clarification.
== END 2025-08-04 23:59 | disposition home or self-care (01) ==
LOC: SCTC 13:36
PROVIDERS: PCP Family Medicine; Referring Provider Family Medicine; Visit Provider Internal Medicine Hematology & Oncology
DX: Z51.11 Encounter for antineoplastic chemotherapy (principal); C83.12 Mantle cell lymphoma, intrathoracic lymph nodes; G62.9 Polyneuropathy, unspecified; Z94.84 Stem cells transplant status
CPT/HCPCS: 36591; 80053; 85025; 96367; 96375; 96413; 96415; 96417; 99212; A4216; J1100; J1200; J1434; J1642; J2405; J3490; J7040; J7050; J9033; Q5115; A9270; G0463

== ENCOUNTER → 2025-08-11 | Outpatient (CLI) | payer MEDICARE, SELFPAY ==
--- NOTE | 2025-08-11 | XR_ITS ---
CLINICAL INDICATION: PAIN Exam date and time: 08/11/2025 at 12:09 p.m. TECHNIQUE: XR femur LT 2V COMPARISON: Concurrent pelvic radiograph and lumbar spine radiograph. FINDINGS: No acute fracture or dislocation. No concerning lytic or blastic lesions. Mild to moderate osteoarthrosis is present at the left hip without severe joint space narrowing. No avascular necrosis. Enthesopathic changes noted at the trochanters. Osteoarthrosis is present at the left knee along with chondrocalcinosis. IMPRESSION: Degenerative changes of the left femur with otherwise no evidence for acute fracture or metastatic lesion.
--- NOTE | 2025-08-11 | XR_ITS ---
EXAMINATION: Lumbar spine 3 views TECHNIQUE: AP lateral: Lateral lower lumbar spine 3 views Date and time: August 11, 2025, 12 noon INDICATIONS: Back pain months FINDINGS: Adequate Detector Car Operator lumbar vertebral bodies on the lateral view No lumbar fracture Prominent lumbar spondylosis Diffuse moderate to advanced lumbar degenerative disc disease most prominent L4-L5, L5-S1 No spondylolisthesis IMPRESSION: Moderate to advanced diffuse lumbar degenerative disc disease with spinal stenosis
--- NOTE | 2025-08-11 | XR_ITS ---
EXAMINATION: AP pelvis single view TECHNIQUE: AP portable supine pelvis single view Date and time: August 11, 2025, 12:17 p.m. INDICATIONS: Pelvic pain months. FINDINGS: Severe osteopenia. No hip fractures or hip dislocations Moderate narrowing hip joints Bones of the pelvis intact IMPRESSION: Moderate bilateral hip osteoarthritis
== END | disposition home or self-care (01) ==
LOC: CDIM 11:22
PROVIDERS: PCP Family Medicine; Referring Provider Orthopaedic Surgery; Visit Provider Orthopaedic Surgery
DX: M51.360 Other intervertebral disc degeneration, lumbar region with discogenic back pain only (principal); M48.061 Spinal stenosis, lumbar region without neurogenic claudication; M89.8X5 Other specified disorders of bone, thigh; M16.0 Bilateral primary osteoarthritis of hip
CPT/HCPCS: 72100; 72170; 73552

== ENCOUNTER 2025-09-14 06:57 | Outpatient (RCR) | payer MEDICARE, SELFPAY ==
--- NOTE | 2025-09-07 10:24 | CTCFLWUP_ITS ---
Patient: NANCY HAM : 1945 Page 4 of 6 FOLLOW UP NOTE DATE OF SERVICE: 09/07/2025 NAME: NANCY HAM ACCOUNT: [id number] : 1945 AGE: 80 INTERVAL HISTORY: Patient is here and have completed 5 cycles of therapy . 1 cycles is remaining . ONCOLOGY HISTORY: DIAGNOSIS: Widely spread mantle cell lymphoma s/p chemotherapy and autologous transplant DATE OF DIAGNOSIS: 08/23/2008 STAGE/TNM: Stage IVb TREATMENT HISTORY: Care?Plan Start?Date Cycle Day Intent Rituxan?375?+?Bendamustine?90?Riley 05/11/202511 01 Palliative Rituxan?375?+?Bendamustine?90?Riley 05/22/202511 01 Induction-Primary HISTORY OF PRESENT ILLNESS: 80-year-old female with a diagnosis of mantle cell lymphoma on August 23, 2008 stage IVb internal prognostic score for. Extensive involvement of all the lymph nodes in the neck axilla mediastinum retroperitoneum pelvic groin mesentery as well as left thyroid: Which was biopsy positive and some soft tissue behind the paraspinous muscles she had drenching right night sweats she received CHOP and Rituxan x 6 and had intrathecal methotrexate prophylaxis x 6 with a complete remission and then went to the [facility] to receive a Beam regimen plus zevalin under research protocol and then having a autologous stem cell transplant on March 13, 2009 she has remained in remission for 9 years with no long-term complications for the last 2 years patient has been under increasing stress PET CT scan August 07, 2016 showed progressive low-density lesion in the bilateral lobes of the liver with no FDG uptake indeterminate she subsequently had an ultrasound the liver on September 02 that showed 3 benign cyst she also had been having spells where she have nystagmus while she was driving and feel like she has about to pass out this happened 3 times she went in the ER and had a CT of the head that was negative and later on August 11, 2016 MRI of the brain that was normal the diagnosis of dehydration she had chronic problems with the neuropathy pain that has been treated with [facility] with various agents including tramadol she cut back the back dose from 100-50 and seems to be tolerating that well with good control she feels that the combination of lipoic acid 1 tablet a coenzyme Q 10 once a day and vitamin B 5 tablet a day has significantly helped her by eliminating her leg cramps and also reducing the numbness and tingling this was managed by neurologist at [facility] neurologist in [place] has started her tremor XL 25 mg this was further helped her neuropathic symptoms she had a cervical fusion in July 2017 because of the worsening numbness in her left arm which was due to nerve viktor von patient's have COPD diabetes and dementia patient's also have mood changes and he is declining and cognitive function which is all frustrating patient. 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 She was seen in the emergency room and had an MRI which showed some shadowing in her spine in the paraspinous area concerning for recurrence of lymphoma and was started on chemotherapy with [facility] OTHER MEDICAL HISTORY/CONDITIONS: Mantle Cell Lymphoma - dx 2007 Autologous stem cell transplant - 2008- [facility] Chronic back pain Peripheral neuropathy Brenden cataract surgery - 10yrs ago Cervical spine fusion- 2016 [facility] - 1991 Laminectomy L4-L5 - 1976 T and A- as child FAMILY HISTORY: Father:?Colon?Cancer?-?dx?90 Sibling:?Breast?-?-?dx?65 Cancer?History:?Maternal?aunt?-?breast SOCIAL HISTORY: 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 Tobacco?Use:?Denies ETOH?Use:?Denies Drug?Note:?Denies Social?History?Note:?Lives?alone COMPOUND SPECIALIST HISTORY: Menarche?-?Age:?12 Menopause:?30 :?0 Live?Births:?0 MEDICATIONS: 1. acalabrutinib maleate - 100 mg 1 tab 1 tab twice daily 2. acyclovir - 400 mg 1 tab Daily 3. allopurinol - 300 mg 1 tab Daily 4. Bactrim DS - 800-160 mg 1 tab 1 tab m w f 5. Eliquis - 2.5 mg 1 tab 1 tab twice daily 6. gabapentin - 100 mg 1 Capsule Daily 7. magnesium glycinate - 100 mg 2 tab Daily 8. Metamucil (with sugar) - 3.4 gram/7 gram Daily 9. omeprazole - 20 mg 1 tab Daily 10. prednisone - 10 mg 1 tab Daily 11. ZyrTEC - 10 mg 1 tab Daily Medications Last Reconciled by Joann Riojas MD on 09/07/2025 ALLERGIES: No Known Drug Allergies REVIEW OF SYSTEMS: A complete 14-point review of systems was performed and is negative except as noted in interval history. PHYSICAL EXAMINATION: VITAL SIGNS: Temperature?98.2, B/P?122/78, Oxygen?Saturation?98% Weight?146?lbs (Change?since?08/17/25:?-8.8?lbs) PAIN: 0 - No pain ECOG Performance Status: 0 - Asymptomatic and fully active GENERAL APPEARANCE: Appears well, in no apparent distress, appropriately interactive. HEENT: Normocephalic, no temporal wasting, normal conjunctiva, no scleral icterus, normal hearing, lips without lesions, neck normal range of motion. CARDIOVASCULAR: Not assessed. PULMONARY: Normal respiratory effort, no respiratory distress or use of accessory muscles, speaking in full sentences, no tachypnea. EXTREMITIES: No pedal edema or cyanosis. SKIN: Normal skin appearance. NEUROLOGIC: Alert and oriented x4. PSHYCHIATRIC: Appropriate affect, mood normal, behavior normal, intact thought and speech. LABORATORY DATA: I have personally reviewed and interpreted each of the patient?s relevant lab tests, abnormal findings are below: Date 08/14/25 08/17/25 ??WHITE?BLOOD?COUNT?(Thou/mm3) 4.1 ? ??RED?BLOOD?COUNT?(Miln/mm3) 3.57?L ? ??HEMOGLOBIN?(gm/dl) 11.5?L ? ??HEMATOCRIT?(%) 34.1?L ? ??PLATELET?COUNT?(Thou/mm3) 138?L ? ??NEUTROPHILS?%,?AUTO?(%) 76 ? ??LYMPH?%,?AUTO?(%) 6?L ? ??NEUTROPHILS,?AUTO?(Thou/mm3) 3.1 ? ??GLUCOSE,RANDOM?(mg/dL) 104 128 ??BLOOD?UREA?NITROGEN?(mg/dL) 16 ? ??CREATININE?(mg/dL) 0.90 ? ??SODIUM?(mmol/L) 142 ? ??POTASSIUM?(mmol/L) 4.2 ? ??CHLORIDE?(mmol/L) 110?H ? ??CrCl?(CandG)?(ml/min) 54.33 ? ??AST/SGOT?(Unit/L) 17 ? ??ALT/SGPT?(Unit/L) 10 ? ??ALKALINE?PHOSPHATASE?(Unit/L) 68 ? ??BILIRUBIN,?TOTAL?(mg/dL) 0.4 ? ??PROTEIN?TOTAL?(gm/dl) 5.6?L ? ??ALBUMIN,?SERUM?(gm/dl) 4.2 ? ??GLOBULIN?(gm/dl) 1.4?L ? ??ALBUMIN/GLOBULIN?RATIO 3.0?H ? ??CALCIUM,?SERUM?(mg/dL) 9.3 ? ??CALCIUM?SERUM?(CORRECTED)?(mg/dL) 9.3 ? ??MAGNESIUM?(mg/dL) 1.8 ? ASSESSMENT/PLAN: Concern for recurrent mantle cell lymphoma Nancy Ham, 80-year-old female with a history of mantle cell lymphoma (MCL) in 2007, now presenting with a newly discovered paraspinal mass on PET-CT scan, suspicious for recurrence. PET-CT scan reveals a [id number] mm hypermetabolic right paraspinal mass from T2 to T9, highly suspicious for recurrence of mantle cell lymphoma. Patient is currently asymptomatic. Previous history includes stage 4 MCL in 2008 with extensive involvement of lymph nodes, thyroid, and paraspinal soft tissue. Patient achieved complete response after R-CHOP chemotherapy, intrathecal methotrexate, and autologous stem cell transplant. Current presentation is concerning for relapse after 16 years of remission. Differential diagnosis includes transformed large B-cell lymphoma, though MCL recurrence is considered 90% likely. Completed 5 cycles of BR Will dose reduce Bendamustine proceed with next cycle Will add acalbrutinib once approved and as maintance Continue allopurinol support with Bactrim acyclovir as ppx proceed with next cycle. Chronic neuropathy Assessment: Patient reports ongoing issues with neuropathy, likely a long-term complication from previous chemotherapy treatments. Currently managing symptoms with lipoic acid supplementation. Recently discontinued tramadol due to unspecified reasons. Plan: - Continue lipoic acid supplementation for neuropathy management - Monitor neuropathy symptoms and adjust management as needed ? Reviewed holter monitor Have atrial fibrillation On eliquis bid 2.5 bid ORDERS: Order # Description [id number] PET/CT of Skull to mid-thigh for Restaging [id number] Comprehensive Metabolic Panel - 12 + CBC with Auto Diff + Uric Acid, Serum [id number] Lactate Dehydrogenase (LDH) [id number] MD Follow Up 4 Week [id number] Follow Up Appointment [id number] CBC + Comprehensive Metabolic Panel [id number] Lab Appointment [id number] Follow Up Appointment [id number] CBC + Comprehensive Metabolic Panel [id number] Lab Appointment [id number] Follow Up Appointment RETURN TO CLINIC: I reviewed the diagnosis, prognosis, and recommended treatment/procedure options with the patient (and/or their legal in home sales representative), including the potential benefits, risks, side effects and alternative therapies. We also discussed the option of no treatment and the possibility of clinical trial participation, if applicable. All questions were addressed, and they demonstrated understanding. They provided informed consent to proceed with the proposed plan of care. BILLING AND COMPLIANCE: I reviewed external records from providers outside my specialty as summarized above. I spent a total of 50 minutes on this patient?s care on the day of their visit excluding time spent related to any billed procedures. This time includes time spent with the patient as well as time spent documenting in the medical record, reviewing patients records and tests, obtaining history, placing orders, communicating with other healthcare professionals, counseling the patient, family or caregiver, and/or care coordination for the diagnoses above. Electronically Signed by: Jarett Tripathi MD T: 10:22 AM CC: PCP: Andreas Pettit Referring: Andreas Pettit This document was completed utilizing speech recognition software. Grammatical errors, random word insertions, pronoun errors, and incomplete sentences are an occasional consequence of this system due to software limitations, ambient noise, and hardware issues. Any formal questions or concerns about the content, text or information contained within the body of this dictation should be directly addressed to the provider for clarification.
[2025-09-12 16:38] LABS: Basophils # (Auto) 0.0 Thou/mm3 (0.0-0.2); Basophils % (Auto) 1 % (0-2.5); Eosinophils # (Auto) 0.1 Thou/mm3 (0.0-0.5); Eosinophils % (Auto) 2 % (0-10); Hematocrit 31.5 % (36.0-46.0); Hemoglobin 10.6 g/dL (12.0-16.0); Immature Granulocytes Auto 0.01 Thou/mm3 (0.00-0.00); Lymphocytes # (Auto) 0.2 Thou/mm3 (1.0-4.8); Lymphocytes % (Auto) 5 % (10-50); Mean Corpuscular HGB Conc 33.7 g/dl (31.0-37.0); Mean Corpuscular Hemoglobin 32.3 pg (25.0-35.0); Mean Corpuscular Volume 96 fL (80-100); Monocytes # (Auto) 0.7 Thou/mm3 (0.0-0.8); Monocytes % (Auto) 15 % (0-12); Neutrophils # (Auto) 3.4 Thou/mm3 (1.8-7.7); Neutrophils % (Auto) 77 % (37-80); Nucleated Red Blood Cell # 0.00 Thou/mm3 (0.00-0.00); Nucleated Red Blood Cell % 0 /100 WBC (0); Platelet Count 150 Thou/mm3 (140-440); RDW Standard Deviation 48.0 fL (36.4-46.3); Red Blood Count 3.28 Miln/mm3 (4.00-5.20); White Blood Count 4.4 Thou/mm3 (3.6-11.0)
[2025-09-12 17:17] LABS: Alanine Aminotransferase < 7 U/L (10-49); Albumin, Serum 4.2 gm/dL (3.4-4.8); Albumin/Globulin Ratio 2.2 (1.2-2.2); Alkaline Phosphatase 70 U/L (46-116); Anion Gap 13 (7-16); Aspartate Amino Transferase 17 U/L (0-34); BUN/Creatinine Ratio 14 Ratio (12-20); Bilirubin,Total 0.4 mg/dL (0.3-1.2); Blood Urea Nitrogen 15 mg/dL (9-23); Calcium 9.4 mg/dL (8.3-10.6); Calcium (Corrected) 9.4 mg/dL (8.5-10.1); Carbon Dioxide 22.2 mMol/L (20.0-31.0); Chloride 110 mMol/L (98-107); Creatinine (Component) 1.1 mg/dL (0.6-1.3); Globulin 1.9 gm/dL (2.3-3.5); Glucose 130 mg/dL (74-106); Osmolality,Calculated 291 (275-295); Potassium 3.6 mMol/L (3.4-5.1); Sodium 145 mMol/L (136-145); Total Protein 6.1 gm/dL (5.7-8.2); eGFR 51 See Note
== END 2025-10-04 23:59 | disposition home or self-care (01) ==
LOC: SCTC 06:57
PROVIDERS: PCP Family Medicine; Referring Provider Family Medicine; Visit Provider Internal Medicine Hematology & Oncology
DX: Z51.11 Encounter for antineoplastic chemotherapy (principal); C83.10 Mantle cell lymphoma, unspecified site; Z94.84 Stem cells transplant status; G62.9 Polyneuropathy, unspecified; I48.91 Unspecified atrial fibrillation; Z79.01 Long term (current) use of anticoagulants
CPT/HCPCS: 36591; 80053; 85025; 96367; 96413; 96415; 96417; 99212; A4216; J1100; J1453; J1642; J2405; J3490; J7040; J7050; J9033; Q5115; A9270; G0463

== ENCOUNTER → 2025-09-25 | Outpatient (CLI) | payer MEDICARE, SELFPAY ==
--- NOTE | 2025-09-25 14:45 | XR_ITS ---
EXAMINATION: PET/CT FUSION SKULL TO THIGH EXAM DATE AND TIME: September 25, 2025, 1531 hours, comparison PET/CT scan March 28, 2025, MRI lumbar spine 06/28/2025, MRI thoracic spine 06/28/2025 INDICATIONS: Diagnosis Mantle cell lymphoma, non-Hodgkin's lymphoma CTDI:vol (mGy) 9.94 DLP: (mGycm) 5.30 PROCEDURE: 9.94 mCi FDG was administered intravenously To allow for distribution and uptake of radiotracer, the patient was allowed to rest quietly in a shielded room. Imaging was performed on an integrated 16-slice PET/CT scanner, with scanning from the skull base to the mid thigh. Serum blood glucose at the time of the injection was measured 100 mg/dL. CT scanning was performed without oral or intravenous contrast material. FINDINGS: Head and Neck: There is no syed hypermetabolism in the neck. The visualized portions of the brain are normal in appearance on CT. Chest: The hypermetabolic right paraspinal mass T8-T9 level, measuring 41 x 20 x 30 mm on the PET/CT scan March 28, 2025 is no longer visualized on this study, please see the MRI thoracic spine report 06/28/2025 Also no hypermetabolic axial skeletal lesions are depicted. Abdomen and Pelvis: There is no syed hypermetabolism in retroperitoneal or pelvic chains. The spleen is normal in size and FDG avidity. Musculoskeletal: Marrow uptake is within normal range. IMPRESSION: The right T8-T9 paraspinal hypermetabolic mass on the PET/CT scan March 28, 2025 is no longer identified No current abnormal hypermetabolic osseous activity
== END | disposition home or self-care (01) ==
LOC: CDIM 14:28
PROVIDERS: PCP Family Medicine; Referring Provider Internal Medicine Hematology & Oncology; Visit Provider Internal Medicine Hematology & Oncology
DX: R22.2 Localized swelling, mass and lump, trunk (principal); C83.10 Mantle cell lymphoma, unspecified site; C85.80 Other specified types of non-Hodgkin lymphoma, unspecified site; C83.11 Mantle cell lymphoma, lymph nodes of head, face, and neck
CPT/HCPCS: 78815; A9552